=== PATIENT | female | born 1960 | race Caucasian/White ===

== ENCOUNTER 2020-11-30 08:48 | Day surgery (SDC) | payer BC, SELFPAY ==
[2020-11-27 14:17] VITALS: BMI 21.1
--- NOTE | 2020-11-30 09:42 | MHC.SHP ---
Pre-Procedural Eval Section A The patient is an INPATIENT: No Changes since office visit: Yes Cold of Flu in the past 2 weeks, Yes New Medical Problems, Yes Changes in Medication and Yes Patient answered all questions The History & Physical has been completed within 30 days and I have reviewed it.: No Section B Chief Complaint: diarrhea Allergies: Allergies Allergy/AdvReac Type Severity Reaction Status Date / Time No Known Allergies Allergy Verified 11/27/20 14:13 Plan I have reviewed the history and physical and performed a pertinent physical examination on my patient. No changes have occurred unless specified.
[2020-11-30 10:32] VITALS: BP 127/86; PULSE 78; RESP 14; TEMP 36.6; O2SAT 98; BMI 21.1
--- NOTE | 2020-11-30 10:33 | HO.ANESPROP2 ---
[facility] Past Medical History Medical History Anxiety Breast cancer Diarrhea Lumbago with sciatica Lumbar disc disease Osteoarthritis Osteopenia Tension headache Surgical History Surgical History History of lumbar surgery Hx of bilateral oophorectomy Hx of left mastectomy Social History Social History Advance Directives: No Advance Directives Information Provided: No Advance Directives on File: No Meds Allergies Allergy/AdvReac Type Severity Reaction Status Date / Time No Known Allergies Allergy Verified 11/27/20 14:13 Active Medications: Current Medications Generic Name Dose Route Start Last Admin Trade Name Freq PRN Reason Stop Dose Admin Lactated Ringer's 1,000 mls @ 50 mls/hr 11/29/20 08:30 Lr IV .Q20H [facility] Home Medications Medication Instructions Recorded Confirmed Last Taken Type acetaminophen [Tylenol] 650 mg PO Q6H PRN 11/27/20 11/27/20 Unknown History calcium carbonate [Calcium 600] 600 mg PO DAILY 11/27/20 11/27/20 Unknown History cholecalciferol (vitamin D3) 10 mcg PO DAILY 11/27/20 11/27/20 Unknown History [Vitamin D3] ibuprofen [Motrin] 200 mg PO Q6H PRN 11/27/20 11/27/20 Unknown History multivitamin 1 tab PO DAILY 11/27/20 11/27/20 Unknown History Exam Exam Date and Time: November 30, 2020 1033 Height,Weight and Vital Signs: Height 5 ft Weight 48.988 kg Airway Mallampati Class: I TM Dist: >3cm Neck ROM: Full Partial: Upper Heart: RRR Lungs: CTA Assessment and Plan Assessment Anesthesia Assessment: Anesthesia Plan Discussed and Chart Reviewed Final Anesthetic Review NPO: Yes ASA Class: II Final Preanesthetic Review: Meds/Allgs Chart Reviewed, Consent Obtained/Reviewed and Anes Risks/Benef Reviewed Patient Risk: Low Procedure Risk: Low Anesthetic Plan Anesthetic Plan: MAC: Disposition: Standard PACU
[2020-11-30] MEDS: Lactated Ringers 1,000 ML 50 ML IV (10:36)
[2020-11-30 11:51] VITALS: BP 99/49; PULSE 71; RESP 18; TEMP 36.1; O2SAT 100
--- NOTE | 2020-11-30 11:53 | PM.OP ---
Brief Operative Note Date of Service: 11/30/20 Pre-op diagnosis: diarrhea Post-op diagnosis: same (normal) Surgeon: Magdy Lara Estimated blood loss (mL): 2 Pathology: other (sigmoid bx's) Condition: stable Disposition: PACU
[2020-11-30 12:06] VITALS: BP 111/68; PULSE 74; RESP 17; O2SAT 98
[2020-11-30 12:21] VITALS: BP 118/65; PULSE 62; RESP 17; O2SAT 98
[2020-11-30] MEDS: Artificial Tears 15 ML DROPS 1 DROP EYE-LEFT (13:12)
--- NOTE | 2020-11-30 13:26 | OP_ITS ---
SURGEON: Magdy Lara MD INDICATIONS: Diarrhea. PREOPERATIVE DIAGNOSIS: POSTOPERATIVE DIAGNOSIS: PROCEDURE PERFORMED: Colonoscopy to the terminal ileum with biopsy. ESTIMATED BLOOD LOSS: COMPLICATIONS: ANESTHESIA: ASSISTANTS: SPECIMENS: MEDICATIONS: Monitored anesthesia care. DESCRIPTION OF PROCEDURE: History and physical performed. The risks and benefits of the procedure were explained to the patient. Informed consent was obtained. The patient was placed in the left lateral decubitus position. A digital rectal exam was performed and was found to be normal. The Olympus pediatric video colonoscope was introduced into the rectum and advanced to the cecum without difficulty. The cecum was identified by transillumination, palpation, and identification of ileocecal valve. Examination was performed and the scope was removed. She tolerated the procedure well and was taken to recovery area in stable condition. FINDINGS: The terminal ileum was normal. The visualized colonic mucosa was within normal limits without evidence of masses or ulcers. No polyps were identified. There was some liquid stool left, which was washed and suctioned as best possible. Retroflexed examination showed small internal hemorrhoids. Random sigmoid biopsies were obtained because of the patient's history of diarrhea. IMPRESSION: Normal colonoscopy. RECOMMENDATIONS: 1. Follow up the biopsy results. 2. Average risk patient should undergo screening colonoscopy every 10 years. MD THEA Veliz/RACHELL / [id number]
== END 2020-11-30 13:28 | disposition home or self-care (01) ==
PROVIDERS: PCP Internal Medicine; Visit Provider Internal Medicine Gastroenterology
PROC: 0DJD8ZZ Inspection of Lower Intestinal Tract, Via Natural or Artificial Opening Endoscopic (ICD-10-PCS; CPT 45378; principal; 2020-11-30 09:50)
DX: R19.7 Diarrhea, unspecified (principal); K64.8 Other hemorrhoids; Z85.3 Personal history of malignant neoplasm of breast; M85.80 Other specified disorders of bone density and structure, unspecified site; Z90.722 Acquired absence of ovaries, bilateral; Z79.899 Other long term (current) drug therapy
CPT/HCPCS: 45380; 88305

== ENCOUNTER 2021-04-30 10:09 | Outpatient (REF) | payer BC, SELFPAY ==
[2021-04-30 10:12] LABS: MANUAL DIFF FLAG NO
[2021-04-30 10:55] LABS: Basophils Percent Auto 0.7 % (0-2); Eosinophils Absolute Auto 0.1 X10*3/uL (0.0-0.4); Eosinophils Percent Auto 1.1 % (0-4); Hematocrit 39.7 % (37-47); Hemoglobin 12.5 g/dl (12.0-16.0); Imm Gran Abs Auto 0.03 X10*3/uL (0.00-0.03); Imm Gran Pct Auto 0.5 % (0.0-0.4); Lymphocytes Percent Auto 36.3 % (20-40); Mean Corpuscular HGB Conc 31.5 g/dl (31.0-35.0); Mean Corpuscular Hemoglobin 28.2 pg (27.0-33.0); Mean Corpuscular Volume 89.4 fL (80-98); Mean Platelet Volume 10.1 fL (9.4-12.3); Monocytes Absolute Auto 0.5 X10*3/uL (0.1-1.2); Monocytes Percent Auto 8.5 % (2-11); Neutrophils Absolute Auto 2.9 X10*3/uL (2.0-8.3); Neutrophils Percent Auto 52.9 % (45-73); Platelet Count 280 X10*3/uL (160-400); Red Blood Count 4.44 X10*6/uL (4.20-5.50); Red Cell Distribution Width 14.2 % (11.0-16.0); White Blood Count 5.5 X10*3/uL (4.8-10.8)
[2021-04-30 11:18] LABS: Appearance Urine CLEAR; Color Urine YELLOW; Glucose Urine UA NEG (NEG); Leukocyte Esterase Urine NEG (NEG); Nitrite Urine NEG (NEG); PH 7.5 (5.0-8.0); Urine Blood NEG (NEG); Urine Ketones NEG (NEG); Urine Protein NEG (NEG-TRACE)
[2021-04-30 11:37] LABS: Alanine Aminotransferase 20 U/L (0-31); Albumin Level 4.2 g/dL (3.5-5.0); Alkaline Phosphatase 77 U/L (39-117); Anion Gap 14 (12-20); Aspartate Amino Transferase 20 U/L (5-31); Bilirubin Total 0.2 mg/dL (0.0-1.0); Blood Urea Nitrogen 16 mg/dL (9-16); Calcium 9.3 mg/dL (8.4-10.2); Carbon Dioxide 29 mmol/L (22-29); Chloride 104 mmol/L (96-108); Cholesterol 209 mg/dL; Estimated Glomerular Filt Rate > 60; Glucose Fasting 96 mg/dL (60-99); HDL Cholesterol 55 mg/dL; LDL Cholesterol Calculated 135 mg/dl; Potassium 4.1 mmol/L (3.3-5.1); Sodium 143 mmol/L (135-145); Total Protein 6.6 g/dL (6.5-8.0); Triglycerides 99 mg/dL
[2021-04-30 12:02] LABS: Vitamin D 25-OH Total 35.7 ng/mL (>30)
== END 2021-04-30 10:10 | disposition home or self-care (01) ==
LOC: HO.LNP 10:09
PROVIDERS: Visit Provider Internal Medicine
DX: Z00.00 Encounter for general adult medical examination without abnormal findings (principal); R79.9 Abnormal finding of blood chemistry, unspecified; E55.9 Vitamin D deficiency, unspecified
CPT/HCPCS: 80053; 80061; 81003; 82306; 85025

== ENCOUNTER 2022-05-09 12:04 | Outpatient (REF) | payer BC, SELFPAY ==
[2022-05-09 12:07] LABS: MANUAL DIFF FLAG NO
[2022-05-09 12:24] LABS: Basophils Percent Auto 0.5 % (0-2); Eosinophils Percent Auto 0.9 % (0-4); Hematocrit 41.3 % (37.0-47.0); Imm Gran Abs Auto 0.03 X10*3/uL (0.00-0.03); Imm Gran Pct Auto 0.5 % (0.0-0.4); Lymphocytes Absolute Auto 1.9 X10*3/uL (1.2-4.9); Lymphocytes Percent Auto 33.2 % (20-40); Mean Corpuscular HGB Conc 31.5 g/dl (31.0-35.0); Monocytes Percent Auto 7.9 % (2-11); Neutrophils Absolute Auto 3.3 x10*3/uL (2.0-8.3); Platelet Count 341 X10*3/uL (160-400); Red Blood Count 4.64 X10*6/uL (4.20-5.50); Red Cell Distribution Width 14.3 % (11.0-16.0); White Blood Count 5.9 X10*3/uL (4.8-10.8)
[2022-05-09 12:25] LABS: Eosinophils Absolute Auto 0.1 X10*3/uL (0.0-0.4); Monocytes Absolute Auto 0.5 X10*3/uL (0.1-1.2)
[2022-05-09 12:37] LABS: Appearance Urine Clear; Color Urine Yellow; Glucose Urine UA Negative (Negative); Leukocyte Esterase Urine Trace (Negative); Nitrite Urine Negative (Negative); Specific Gravity - Urine 1.025 (1.005-1.025); UMIC TRIGGER UA YES; Urine Blood Negative (Negative); Urine Ketones Negative (Negative); Urine Protein Negative (Neg-Trace)
[2022-05-09 12:40] LABS: Bacteria Urine None Seen (None Seen); Hyaline Casts Urine 0-2 /LPF (0-2); RBC Urine 0-2 /HPF (0-2); Squamous Epithelial Cell Urine 0-2 /HPF (0-2); WBC Urine 0-5 /HPF (0-5)
[2022-05-09 12:47] LABS: Alanine Aminotransferase 22 U/L (0-31); Albumin Level 4.3 g/dL (3.5-5.0); Alkaline Phosphatase 76 U/L (39-117); Anion Gap 13 (12-20); Aspartate Amino Transferase 23 U/L (5-31); Bilirubin Total 0.2 mg/dL (0.0-1.0); Blood Urea Nitrogen 21 mg/dL (9-16); Calcium 9.2 mg/dL (8.4-10.2); Carbon Dioxide 28 mmol/L (22-29); Chloride 103 mmol/L (96-108); Cholesterol 216 mg/dL; Estimated Glomerular Filt Rate > 60; Glucose Fasting 97 mg/dL (60-99); HDL Cholesterol 52 mg/dL; LDL Cholesterol Calculated 146 mg/dl; Potassium 4.3 mmol/L (3.3-5.1); Sodium 140 mmol/L (135-145); Total Protein 6.7 g/dL (6.5-8.0); Triglycerides 91 mg/dL
[2022-05-09 12:54] LABS: Vitamin D 25-OH Total 24.6 ng/mL (>30)
== END 2022-05-09 12:05 | disposition home or self-care (01) ==
LOC: HO.LNP 12:04
PROVIDERS: Visit Provider Internal Medicine
DX: Z00.00 Encounter for general adult medical examination without abnormal findings (principal); E55.9 Vitamin D deficiency, unspecified
CPT/HCPCS: 80053; 80061; 81001; 82306; 85025

== ENCOUNTER 2023-06-05 12:19 | Outpatient (REF) | payer BC, SELFPAY ==
[2023-06-05 12:23] LABS: MANUAL DIFF FLAG NO
[2023-06-05 12:49] LABS: Basophils Absolute Auto 0.1 X10*3/uL (0.0-0.2); Basophils Percent Auto 0.9 % (0-2); Eosinophils Absolute Auto 0.1 X10*3/uL (0.0-0.4); Eosinophils Percent Auto 0.9 % (0-4); Hematocrit 39.1 % (37.0-47.0); Hemoglobin 12.5 g/dl (12.0-16.0); Imm Gran Abs Auto 0.02 X10*3/uL (0.00-0.03); Imm Gran Pct Auto 0.4 % (0.0-0.4); Lymphocytes Percent Auto 34.9 % (20-40); Mean Corpuscular Hemoglobin 28.2 pg (27.0-33.0); Mean Corpuscular Volume 88.3 fL (80.0-98.0); Mean Platelet Volume 10.1 fL (9.4-12.3); Monocytes Absolute Auto 0.5 X10*3/uL (0.1-1.2); Monocytes Percent Auto 9.1 % (2-11); Neutrophils Percent Auto 53.8 % (45-73); Platelet Count 315 X10*3/uL (160-400); Red Blood Count 4.43 X10*6/uL (4.20-5.50); Red Cell Distribution Width 14.3 % (11.0-16.0); White Blood Count 5.6 X10*3/uL (4.8-10.8)
[2023-06-05 12:53] LABS: Appearance Urine Clear; Color Urine Yellow; Glucose Urine UA Negative (Negative); Leukocyte Esterase Urine Negative (Negative); Nitrite Urine Negative (Negative); Urine Blood Negative (Negative); Urine Ketones Negative (Negative); Urine Protein Negative (Neg-Trace)
[2023-06-05 12:55] LABS: Bacteria Urine None Seen (None Seen); Hyaline Casts Urine 0-2 /LPF (0-2); RBC Urine 0-2 /HPF (0-2); Squamous Epithelial Cell Urine 0-2 /HPF (0-2); WBC Urine 0-5 /HPF (0-5)
[2023-06-05 14:55] LABS: Alanine Aminotransferase 15 U/L (0-31); Albumin Level 4.1 g/dL (3.5-5.0); Alkaline Phosphatase 75 U/L (39-117); Anion Gap 11 (12-20); Aspartate Amino Transferase 21 U/L (5-31); Bilirubin Total 0.3 mg/dL (0.0-1.0); Blood Urea Nitrogen 21 mg/dL (9-16); Calcium 9.2 mg/dL (8.4-10.2); Carbon Dioxide 27 mmol/L (22-29); Chloride 105 mmol/L (96-108); Cholesterol 210 mg/dL (<200); Estimated Glomerular Filt Rate > 60; Glucose Fasting 95 mg/dL (60-99); HDL Cholesterol 54 mg/dL (>40); LDL Cholesterol Calculated 144 mg/dL (<100); Potassium 4.2 mmol/L (3.3-5.1); Sodium 139 mmol/L (135-145); Total Protein 6.7 g/dL (6.5-8.0); Triglycerides 62 mg/dL (<150)
[2023-06-05 14:59] LABS: Vitamin D 25-OH Total 118.9 ng/mL (>30)
== END 2023-06-05 12:20 | disposition home or self-care (01) ==
LOC: HO.LNP 12:19
PROVIDERS: Visit Provider Internal Medicine
DX: Z00.00 Encounter for general adult medical examination without abnormal findings (principal); E55.9 Vitamin D deficiency, unspecified
CPT/HCPCS: 80053; 80061; 81001; 82306; 85025

== ENCOUNTER 2024-06-10 11:04 | Outpatient (REF) | payer BC, SELFPAY ==
[2024-06-10 11:08] LABS: MANUAL DIFF FLAG NO
[2024-06-10 12:02] LABS: Appearance Urine Clear; Color Urine Yellow; Glucose Urine UA Negative (Negative); Leukocyte Esterase Urine Negative (Negative); Nitrite Urine Negative (Negative); PH 5.5 (5.0-9.0); Specific Gravity - Urine 1.025 (1.005-1.025); Urine Blood Negative (Negative); Urine Ketones Negative (Negative); Urine Protein Negative (Neg-Trace)
[2024-06-10 12:03] LABS: Basophils Percent Auto 0.6 % (0-2); Eosinophils Absolute Auto 0.1 X10*3/uL (0.0-0.4); Eosinophils Percent Auto 1.1 % (0-4); Hematocrit 40.5 % (37.0-47.0); Imm Gran Abs Auto 0.04 X10*3/uL (0.00-0.03); Imm Gran Pct Auto 0.6 % (0.0-0.4); Lymphocytes Absolute Auto 1.9 X10*3/uL (1.2-4.9); Lymphocytes Percent Auto 29.7 % (20-40); Mean Corpuscular HGB Conc 32.1 g/dl (31.0-35.0); Mean Corpuscular Hemoglobin 28.3 pg (27.0-33.0); Mean Corpuscular Volume 88.2 fL (80.0-98.0); Mean Platelet Volume 10.1 fL (9.4-12.3); Monocytes Absolute Auto 0.5 X10*3/uL (0.1-1.2); Monocytes Percent Auto 8.5 % (2-11); Neutrophils Absolute Auto 3.8 x10*3/uL (2.0-8.3); Neutrophils Percent Auto 59.5 % (45-73); Platelet Count 315 X10*3/uL (160-400); Red Blood Count 4.59 X10*6/uL (4.20-5.50); Red Cell Distribution Width 14.4 % (11.0-16.0); White Blood Count 6.4 X10*3/uL (4.8-10.8)
[2024-06-10 12:08] LABS: Bacteria Urine None Seen (None Seen); RBC Urine 0-2 /HPF (0-2); Squamous Epithelial Cell Urine 0-2 /HPF (0-2); WBC Urine 0-5 /HPF (0-5)
[2024-06-10 12:49] LABS: Vitamin D 25-OH Total 71.2 ng/mL (>30)
[2024-06-10 12:57] LABS: Anion Gap 10 (12-20)
[2024-06-10 13:02] LABS: Alanine Aminotransferase 27 U/L (0-31); Albumin Level 4.1 g/dL (3.5-5.0); Alkaline Phosphatase 74 U/L (39-117); Aspartate Amino Transferase 30 U/L (5-31); Bilirubin Total 0.3 mg/dL (0.0-1.0); Blood Urea Nitrogen 17 mg/dL (9-16); Calcium 9.6 mg/dL (8.4-10.2); Carbon Dioxide 29 mmol/L (22-29); Chloride 105 mmol/L (96-108); Cholesterol 210 mg/dL (<200); Estimated Glomerular Filt Rate > 60; Glucose Fasting 96 mg/dL (60-99); HDL Cholesterol 56 mg/dL (>40); LDL Cholesterol Calculated 142 mg/dL (<100); Potassium 4.2 mmol/L (3.3-5.1); Sodium 140 mmol/L (135-145); Total Protein 6.7 g/dL (6.5-8.0); Triglycerides 64 mg/dL (<150)
== END 2024-06-10 11:05 | disposition home or self-care (01) ==
LOC: HO.LNP 11:04
PROVIDERS: Visit Provider Internal Medicine
DX: Z00.00 Encounter for general adult medical examination without abnormal findings (principal); E55.9 Vitamin D deficiency, unspecified
CPT/HCPCS: 80053; 80061; 81001; 82306; 85025

== ENCOUNTER → 2025-02-22 15:10 | Outpatient (BNVA) | payer OTHER, SELFPAY | PROVIDERS: PCP Internal Medicine; Visit Provider Physician Assistant | DX: H44.133 Sympathetic uveitis, bilateral (principal); M79.18 Myalgia, other site; R19.7 Diarrhea, unspecified | CPT/HCPCS: 80048; 83735; 84075; 85025; 99204 ==

== ENCOUNTER 2025-02-28 09:47 | Outpatient (REF) | payer OTHER, SELFPAY ==
--- OUTSIDE RECORDS SUMMARY | 2025-02-28 10:33 | XMS_ITS | Patient Health Record ---
Author Organization Mike Villalta MD Address [address] [place], [place] [phone] Care Team Providers Care Physician Scribe Name Role Phone Mike Villalta Primary Care Provider Allergies No Known Allergies Results Component Value Reference Range Notes Complete Blood Count Auto Di ff Reviewed date:06/10/2024 12:44:39 PM Interpretation: Performing Lab:[facility], [address] [place] [phone] Notes/Report: White Blood Count 6.4 4.8-10.8 X10*3/uL [...] NRBC Abs Auto 0.000 0.0-0.012 X10*3/uL Comprehensive Imperial. Panel Fa st Reviewed date:06/10/2024 05:14:20 PM Interpretation: Performing Lab:[facility], [address] [place] [phone] Notes/Report: Sodium 140 135-145 mmol/L Potassium 4.2 3.3-5.1 mmol/L Chloride 105 96-108 mmol/L Carbon Dioxide 29 22-29 mmol/L Anion Gap 10 12-20 Blood Urea Nitrogen 17 9-16 mg/dL Creatinine 0.66 0.5-1.4 mg/dL Estimated Glomerular Filt Rate > 60 NOTE: For -Samo[place] individuals, multiply the result by 1.210. Chronic [...] Panel Reviewed date:06/10/2024 05:17:26 PM Interpretation: Performing Lab:[facility], [address] [place] [phone] Notes/Report: Triglycerides 64 <150 mg/dL Desirable Triglyceride: [...] Total Reviewed date:06/10/2024 02:33:31 PM Interpretation: Performing Lab:[address] [phone] Notes/Report: Vitamin D 25-OH Total 71.2 >30 [...] t Reviewed date:06/10/2024 12:44:56 PM Interpretation: Performing Lab:[facility], [address] [place] [phone] Notes/Report: [id number] 0800 Urine, Clean Catch Color Urine Yellow Appearance Urine Clear PH 5.5 5.0-9.0 Glucose Urine UA Negative Negative mg/dL Urine Blood Negative Negative Specific Enterprise - Urine 1.025 1.005-1.025 Urine Protein Negative Neg-Trace mg/dL Urine Ketones Negative Negative mg/dL Nitrite Urine Negative Negative Leukocyte Esterase Urine Negative Negative RBC Urine 0-2 0-2 /HPF WBC Urine 0-5 0-5 /HPF Squamous Epithelial Cell Urine 0-2 0-2 /HPF Bacteria Urine None Seen None Seen Hyaline Casts Urine 3-5 0-2 /LPF MAMMOGRAM DIGITAL BILATERAL SCREEN Reviewed date:06/28/2024 12:46:50 PM Interpretation:Negative Performing Lab: Notes/Report: Negative Reason For Referral Reason hyperkalemia Diagnosis 1 Hyperkalemia (E87.5) Referral Organization Mike Villalta MD Referring Provider First Name Mike Referring Provider Last Name Ambar Referring Provider Speciality Internal M edicine Referred Provider Erwin Lambert Referred Provider Specialty Nephrology Referral Priority Routine Medications Medication SIG (Take, Route, Frequency, Duration) [...] every day for 30 day(s) 12/03/2020 Not-Taking Immunizations Vaccine Route Administration Date Status Comme nts Fluarix Quadrivalent Unknown 06/28/2018 Administered Covid Vaccine Unknown 12/01/2020 Administered Moderna SARS-COV-2 Moderna Unknown 12/29/2020 Administered SARS-COV-2 Moderna Unknown 10/11/2021 Administered [facility] TDaP Unknown 06/28/2018 Refused Fluarix Quadrivalent Unknown 04/12/2019 Refused Shingrix Unknown 04/26/2019 Refused TDaP Unknown 04/26/2019 Refused Social History Tobacco Use: Social History Observation [...] ast year? No Points 0 Interpretation Negative Problems Problem Type SNOMED Code ICD Code Onset Dates Problem Status W/U Status Risk Notes Problem 81689273 Vitamin D deficiency (E55.9) Active confirmed Problem 60575343 Anxiety (F41.9) Active confirmed Problem 2215673 Primary insomnia (F51.01) Active confirmed Problem 26200361 Primary osteoarthritis, right hand (M19.041) Active confirmed Problem 828469778 Lumbago with sciatica, unspecified side (M54.40) Active confirmed Problem 649784376 Lumbar disc disease (M51.9) Active confirmed Problem 116917179 History of breast cancer (Z85.3) Active confirmed Problem 628107432 Tension headache (G44.209) Active confirmed Problem 46297948 Sciatica of right side (M54.31) Active confirmed Problem 744173053 Osteopenia determined by x-ray (M85.80) Active confirmed Vital Signs Blood pressure diastolic 64 mm Hg 02/28/2025 Height 59 in 02/28/2025 Blood pressure systolic 122 mm Hg 02/28/2025 Weight 116 lbs 02/28/2025 BMI 23.43 kg/m2 02/28/2025 Encounters Encounter Location Date Provider Diagnosis Mike Villalta MD [address] [place] [phone] 06/10/2024 Mike Villalta Blood tests for routine general physical examination Z00.00 and Vitamin D deficiency E55.9 Mike Villalta MD [address] [place] [id number] 02/28/2025 Mike Villalta Hyperkalemia E87.5 Mike Villalta MD [address] [place] [address] Drive [address] [place] [phone] 06/17/2024 Mike Villalta Dermatofibroma D23.9 ; Annual physical exam Z00.00 ; History of breast cancer Z85.3 ; Vitamin D deficiency E55.9 and Depression screening Z13.31 Mike Villalta MD [address] [place] [id number] 02/21/2025 Miek Villalta Lethargy R53.83 Mike Villalta MD [address] [place] [address] Drive [address] [place] [id number] 02/21/2025 Mike Villalta MD [address] [place], [place] [phone] 02/16/2025 Mike Villalta Assessments Encounter Date Diagnosis (ICD Code) Assessment Notes Treatment Notes Treatment Clinical Notes Section Notes 06/10/2024 Blood tests for routine general physical examination (ICD-10 - Z00.00) 06/10/2024 Vitamin D deficiency (ICD-10 - E55.9) 02/28/2025 Hyperkalemia (ICD-10 - E87.5) kidney function is normal. most likely cause is the handling of the blood/f the potassium is high will refer her to renal 06/17/2024 Dermatofibroma (ICD-10 - D23.9) referral to [facility]/ PATIENT PREFERS TO GO TO [facility], INFO HAS BEEN GIVEN 06/17/2024 Annual physical exam (ICD-10 - Z00.00) labs reviewed and discussed with patient 02/21/2025 Lethargy (ICD-10 - R53.83) has worked [...] TE from 02-21-25 for W/C billing info 06/17/2024 History of breast cancer (ICD-10 - Z85.3) is going for mammogram. followed by oncology 06/17/2024 Vitamin D deficiency (ICD-10 - E55.9) stable, will contihue current regiment 06/17/2024 Depression screening (ICD-10 - Z13.31) negative screen Plan Of Treatment Pending Test Test Name Order Date Electrocardiogram (EKG) 03/21/2016 NUC WHOLE BODY SCAN BONE 05/01/2020 Potassium 02/28/2025 Future Test Test Name Order Date BONE DENSITY DEXA 10/29/2020 MAMMOGRAM DIGITAL UNILATERAL LAURA RT 10/09 Next Appt Details Provider Name:Mike connolly, 06/15/2025 07:15:00 AM, [address], [address], [place], [place], [phone], Provider Name:Mike connolly, 06/22/2025 02:30:00 PM, [address] [facility], [address], [place], [place], [phone], Insurance Providers Payer Name Payer Address Payer Phone Subscriber Number Group Number Insured Name Patient Relationship to Insured Coverage Start Date Coverage End Date [employer] [address] [place], [place] [phone] [id number] Inocente Steiner Self - patient is the insured [facility] [address] [address] [place] [id number] Inocente Steiner Self - patient is the insured Medical (General) History Medical History History ICD Code 10/10/2013 Colonoscopy; repeat 10 years; colonoscopy 11/30/[address] Lara (CK biopsy repeat 10 y rs) 01/2015 Bone Density (normal) - repeat 2 years Hx of left mastectomy Surgical History Surgery Date(Month/Year) left mastectomy 2000
--- OUTSIDE RECORDS SUMMARY | 2025-02-28 10:33 | XMS_ITS | Patient Health Record ---
Author Organization [facility] Address [address] [place] [address] Care Team Providers Care Manager Behavioral Name Role Phone Mike Villalta MD Primary Care Provider Tamara Lara Jr, Magdy Unavailable [phone] Reason For Referral No Information Medications Medication SIG (Take, Route, Frequency, Duration) Notes Start Date End Date Status Multivitamin Active Tylenol Active Motrin Active Vitamin D 400 units Active MiraLax (colon prep) 8.3 ounce ((238) grams mixed with Gatorade or Crystal Light orally begin at 5:00 p.m. the day before the procedure for 1 day 11/19/2020 Active Calcium 600 MG Orally Activ e Immunizations Vaccine Route Administration Date Status Comme nts Influenza Unknown 11/19/2020 Refused Social History Tobacco Use: Social History Observation Description Date Details (start date - stop date) Never Smoker NA - NA Tobacco Use/Smoking Question Answer Notes Patient is a nonsmoker Alcohol Screen Question Answer Notes Did you have a drink containing alcohol in the p ast year? No Points 0 Interpretation Negative Problems Problem Type SNOMED Code ICD Code Onset Dates Problem Status W/U Status Risk Notes Problem 38193950 Diarrhea, unspecified type (R19.7) Active confirmed Plan Of Treatment Future Test Test Name Order Date COLONOSCOPY 11/19/2020 Insurance Providers Payer Name Payer Address Payer Phone Subscriber Number Group Number Insured Name Patient Relationship to Insured Coverage Start Date Coverage End Date [facility] [address] [place] [address] [id number] CLEMENCIA MANUEL Self - patient is the insured Medical (General) History Medical History History ICD Code osteopenia breast cancer hx of - left side anxiety lumbar disc disease osteoarthritis Tension Headache diarrhea lumbago with Sciatica Surgical History Surgery Date(Month/Year) left mastectomy Lower Lumbar Ovaries removal
--- OUTSIDE RECORDS SUMMARY | 2025-02-28 10:33 | XMS_ITS | Patient Health Record ---
[facility] Address [address] [address] Care Team Providers Care Ob/Gyn Doctor Name Role Phone Mike Villalta MD Primary Care Provider Silvino Palma Unavailable [phone] Reason For Referral No Information Medications Medication SIG (Take, Route, Frequency, Duration) Notes Start Date End Date Status Calcium 600 MG 1 tablet with meals Orally Once a day Active Aspirin 81 MG 1 tablet Orally Once a day Active Multivitamins Active Shoes . . . Medically necess cata to wear comfortable shoes at work; Duration: as needed 05/13/2017 Active Fluticasone Propionate 50 MCG/ACT USE 1 SPRAY IN EACH NOSTRIL ONCE A DAY Nasal; Duration: 60 Not-Taking Vitamin D Active Social History Tobacco Use: Social History Observation Description Date Details (start date - stop date) Never Smoker NA - NA Tobacco Use/Smoking Question Answer Notes Are you a: nonsmoker Additional Findings: Tobacco Non-User Current no n-smoker Alcohol Screen Question Answer Notes Did you have a drink containing alcohol in the p ast year? No Points 0 Interpretation Negative Tobacco use other than smoking: Question Answer Notes Are you an other tobacco user? No Plan Of Treatment Pending Test Test Name Order Date - Ganglion Cyst Injection/Aspiratio n 05/13/2017 Insurance Providers Payer Name Payer Address Payer Phone Subscriber Number Group Number Insured Name Patient Relationship to Insured Coverage Start Date Coverage End Date [facility] [address] [place] [address] [phone] [id number] Inocente Steiner Self - patient is the insured Medical (General) History Medical History History ICD Code Anemia Cancer Transfusions Surgical History Surgery Date(Month/Year) cancer surgery-left breast 2001
[2025-02-28 10:42] LABS: Potassium 4.1 mmol/L (3.3-5.1)
== END 2025-02-28 09:48 | disposition home or self-care (01) ==
LOC: HO.LNP 09:47
PROVIDERS: Visit Provider Internal Medicine
DX: E87.5 Hyperkalemia (principal)
CPT/HCPCS: 84132

== ENCOUNTER 2025-03-22 09:53 | Outpatient (REF) | payer OTHER, SELFPAY ==
[2025-03-22 13:48] LABS: Appearance Urine Clear; Glucose Urine UA Negative (Negative); PH 6.5 (5.0-9.0); Specific Gravity - Urine 1.010 (1.005-1.025); UMIC TRIGGER UA YES
[2025-03-22 17:57] LABS: Alanine Aminotransferase 23 U/L (0-31); Albumin Level 4.5 g/dL (3.5-5.0); Alkaline Phosphatase 79 U/L (39-117); Anion Gap 11 (12-20); Aspartate Amino Transferase 30 U/L (5-31); Blood Urea Nitrogen 19 mg/dL (9-16); Calcium 9.0 mg/dL (8.4-10.2); Carbon Dioxide 29 mmol/L (22-29); Chloride 104 mmol/L (96-108); Estimated Glomerular Filt Rate > 60; Potassium 4.3 mmol/L (3.3-5.1); Sodium 140 mmol/L (135-145); Total Protein 7.0 g/dL (6.5-8.0); Uric Acid 2.8 mg/dL (2.4-5.7)
== END 2025-03-22 09:54 | disposition home or self-care (01) ==
LOC: HO.HKASLDS 09:53
PROVIDERS: PCP Internal Medicine; Referring Provider Internal Medicine; Visit Provider Internal Medicine Hypertension Specialist
DX: E87.5 Hyperkalemia (principal)
CPT/HCPCS: 36415; 80053; 81001; 82570; 84133; 84550; 99202

== ENCOUNTER 2025-03-22 09:53 | Outpatient (AMB) | payer OTHER, SELFPAY ==
[2025-03-22 10:04] VITALS: BP 114/76; PULSE 73; O2SAT 99; BMI 23.0
--- NOTE | 2025-03-22 10:04 | HO.NEPHOV_ITS ---
Vital Signs 03/22/25 10:04 Height 5 ft Weight 118 lb BMI 23.0 BP 114/76 Blood Pressure Location Lt brachial Position Sitting Pulse 73 Pulse Source Pulse Oximeter Pulse Oximetry (%) 99 Oxygen Delivery Method Room Air Intake Visit Reasons: ENP: Hyperkalemia-# Not in Service Neurologist Required: No Accompanied by: Self / Same As Patient Allergies No Known Allergies Allergy (Verified 03/22/25 10:06) Medication List - Last Reconciled 03/22/25 by Erwin Lambert MD acetaminophen (Tylenol) 650 mg PO Q6H PRN cholecalciferol (vitamin D3) (Vitamin D3) 10 mcg PO DAILY HPI Comments Details: The patient is a 64-year-old female presenting with a h/o hyperkalemia and potential fluoride exposure. She has been working with [employer] for nearly ten years, which was recently identified as a potential source of fluoride exposure. The exposure was discovered when the company changed procedures, and her potassium levels were found to be elevated during a work-related health check. Repeat Potassium was normal The patient reports a history of breast cancer diagnosed in 2000, for which she underwent surgery and completed treatment successfully. She also had back surgery in 2019. She experiences persistent fatigue and nausea, which she attributes to stress and her work environment. She also reported a severe case of diarrhea in the past, which has since resolved. [facility] Medical History Anxiety Breast cancer Diarrhea Lumbago with sciatica Lumbar disc disease Osteoarthritis Osteopenia Tension headache Surgical History Hx of bilateral oophorectomy History of lumbar surgery Hx of left mastectomy Review of Systems Const Denies anorexia, Denies fever(s) and Denies weakness Eyes Denies blurry vision Card Denies no additional complaints and Denies dyspnea Resp Reports no additional complaints and Denies dyspnea GI Denies melena, Denies diarrhea (Had diarrhea in the past and resolved.) and Reports nausea Denies hematuria Musc Denies tingling Skin/Breast Denies rash Neuro Denies focal weakness, Denies tingling, Denies tremor(s) and Denies weakness Physical Exam Vital Signs: Last Vital Signs Pulse 73 03/22/25 10:04 BP 114/76 03/22/25 10:04 Pulse Ox 99 03/22/25 10:04 Oxygen Delivery Method Room Air 03/22/25 10:04 BMI result Body Mass Index 23.0 Results Reviewed Nephrology Results: Potassium, (3.3-5.1) 4.1 mmol/L Δ 02/28/25 Urine Protein, (Neg-Trace) Negative mg/dL 06/10/24 Assessment & Plan Assessment & Plan (1) Hyperkalemia: Code(s): E87.5 - Hyperkalemia Category: Medical Plan 64 yr old healthy woman with an episode of Hyperkalemia Renal potassium was normal. Renal function has been normal. Work up ordered as below No changes in medications Further work up will be based on the outcome of the baseline work up Answered all her questions and reassured . Orders: Orders Comprehensive Met. Panel Today E87.5 - Hyperkalemia Uric Acid Today E87.5 - Hyperkalemia UA and rflx microscopic Today E87.5 - Hyperkalemia Potassium Urine Random Today E87.5 - Hyperkalemia Sodium Urine Random 2 Weeks E87.5 - Hyperkalemia Creatinine Urine Today E87.5 - Hyperkalemia Coding Level of Care Code New Pt Level 4 (73315) Diagnoses Hyperkalemia E87.5
--- OUTSIDE RECORDS SUMMARY | 2025-03-22 10:30 | XMS_ITS | Patient Health Record ---
Author Organization [facility] Address [address] [place] [address] Care Team Providers Care Imagery Analyst Name Role Phone Mike Villalta MD Primary Care Provider Tamara Lara Jr, Magdy Unavailable [phone] Reason For Referral No Information Medications Medication [...] Problem Status W/U Status Risk Notes Problem [id number] Diarrhea, unspecified type (R19.7) Active confirmed Plan Of Treatment Future Test Test Name Order Date COLONOSCOPY 11/19/2020 Insurance Providers Payer Name Payer Address Payer Phone Subscriber Number Group Number Insured Name Patient Relationship to Insured Coverage Start Date Coverage End Date [facility] [address] [place] [address] [id number] CLEMENCIA MANUEL Self - patient is the insured Medical (General) History Medical History History ICD Code osteopenia breast cancer hx of - left side anxiety lumbar disc disease osteoarthritis Tension Headache diarrhea lumbago with Sciatica Surgical History Surgery Date(Month/Year) left mastectomy Lower Lumbar Ovaries removal
--- OUTSIDE RECORDS SUMMARY | 2025-03-22 10:30 | XMS_ITS | Patient Health Record ---
Author Organization Mike Villalta MD Address [address] [place], [place] [id number] Care Team Providers Care Corn Crop Supervisor Name Role Phone Mike Villalta Primary Care Provider Allergies No Known Allergies Results Component Value Reference Range Notes Complete Blood Count Auto Di ff Reviewed date:06/10/2024 12:44:39 PM Interpretation: Performing Lab:[facility], [address] [place] [phone] Notes/Report: White Blood Count 6.4 4.8-10.8 X10*3/uL [...] NRBC Abs Auto 0.000 0.0-0.012 X10*3/uL Comprehensive [place]. Panel Fa st Reviewed date:06/10/2024 05:14:20 PM Interpretation: Performing Lab:[facility], [address] [place] [phone] Notes/Report: Sodium 140 135-145 mmol/L Potassium 4.2 3.3-5.1 mmol/L Chloride 105 96-108 mmol/L Carbon Dioxide 29 22-29 mmol/L Anion Gap 10 12-20 Blood Urea Nitrogen 17 9-16 mg/dL Creatinine 0.66 0.5-1.4 mg/dL Estimated Glomerular Filt Rate > 60 NOTE: For -Swiss individuals, multiply the result by 1.210. Chronic [...] Panel Reviewed date:06/10/2024 05:17:26 PM Interpretation: Performing Lab:[facility], [address] [place] [phone] Notes/Report: Triglycerides 64 <150 mg/dL Desirable Triglyceride: [...] Total Reviewed date:06/10/2024 02:33:31 PM Interpretation: Performing Lab:[address] [phone] Notes/Report: Vitamin D 25-OH Total 71.2 >30 [...] t Reviewed date:06/10/2024 12:44:56 PM Interpretation: Performing Lab:[facility], [address] [place] [phone] Notes/Report: [id number] Urine, Clean Catch Color Urine Yellow Appearance Urine Clear PH 5.5 5.0-9.0 Glucose Urine UA Negative Negative mg/dL Urine Blood Negative Negative Specific [place] - Urine 1.025 1.005-1.025 Urine Protein Negative Neg-Trace mg/dL Urine Ketones Negative Negative mg/dL Nitrite Urine Negative Negative Leukocyte Esterase Urine Negative Negative RBC Urine 0-2 0-2 /HPF WBC Urine 0-5 0-5 /HPF Squamous Epithelial Cell Urine 0-2 0-2 /HPF Bacteria Urine None Seen None Seen Hyaline Casts Urine 3-5 0-2 /LPF Potassium Reviewed date:02/28/2025 12:31:59 PM Interpretation: Performing Lab:[facility], [address] [place] [phone] Notes/Report: Potassium 4.1 3.3-5.1 mmol/L MAMMOGRAM DIGITAL BILATERAL SCREEN Reviewed date:06/28/2024 12:46:50 PM Interpretation:Negative Performing Lab: Notes/Report: Negative Reason For Referral Reason hyperkalemia Diagnosis 1 Hyperkalemia (E87.5) Referral Organization Mike Villalta MD Referring Provider First Name Mike Referring Provider Last Name Ambar Referring Provider Speciality Internal M edicine Referred Provider Erwin Lambert Referred Provider Specialty Nephrology General Notes Radha Becerril 0 03/13/2025 10:17:04 AM >info faxedJone Annette 03/16/2025 11:47:28 AM >was told patient is aware of the appt Referral Priority Routine Referral Appointment Date 03/22/2025 Medications Medication SIG (Take, Route, Frequency, Duration) [...] Problem Status W/U Status Risk Notes Problem 77772928 Vitamin D deficiency (E55.9) Active confirmed Problem 64462360 Anxiety (F41.9) Active confirmed Problem 6376631 Primary insomnia (F51.01) Active confirmed Problem 21228197 Primary osteoarthritis, right hand (M19.041) Active confirmed Problem 802322368 Lumbago with sciatica, unspecified side (M54.40) Active confirmed Problem 330817363 Lumbar disc disease (M51.9) Active confirmed Problem 076383862 History of breast cancer (Z85.3) Active confirmed Problem 630164515 Tension headache (G44.209) Active confirmed Problem 84845741 Sciatica of right side (M54.31) Active confirmed Problem 345901258 Osteopenia determined by x-ray (M85.80) Active confirmed Vital Signs Blood pressure diastolic 64 mm Hg 02/28/2025 Height 59 in 02/28/2025 Blood pressure systolic 122 mm Hg 02/28/2025 Weight 116 lbs 02/28/2025 BMI 23.43 kg/m2 02/28/2025 Encounters Encounter Location Date Provider Diagnosis Mike Villalta MD [address] [place] [id number] 06/10/2024 Mike Villalta Blood tests for routine general physical examination Z00.00 and Vitamin D deficiency E55.9 Mike Villalta MD [address] [place], [place] [id number] 06/17/2024 Mike Villalta Dermatofibroma D23.9 ; Annual physical exam Z00.00 ; History of breast cancer Z85.3 ; Vitamin D deficiency E55.9 and Depression screening Z13.31 Mike Villalta MD [address] [place] [id number] 02/21/2025 Mike Villalta Lethargy R53.83 Mike Villalta MD [address] [place] [id number] 02/28/2025 Mike Villalta Hyperkalemia E87.5 Mike Villalta MD [address] [place] [id number] 02/21/2025 Mike Villalta MD [address] [place] [id number] 02/16/2025 Mike Villalta Assessments Encounter Date Diagnosis (ICD Code) Assessment Notes Treatment Notes Treatment Clinical Notes Section Notes 06/10/2024 Blood tests for routine general physical examination (ICD-10 - Z00.00) 06/10/2024 Vitamin D deficiency (ICD-10 - E55.9) 06/17/2024 Dermatofibroma (ICD-10 - D23.9) referral to [place] [facility]/ PATIENT PREFERS TO GO TO [facility], INFO HAS BEEN GIVEN 06/17/2024 Annual physical exam (ICD-10 - Z00.00) labs reviewed and discussed with patient 02/21/2025 Lethargy (ICD-10 - R53.83) 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 Her employer needs to do this. Called her HR dept they will be handling this. See TE from 02-21-25 for W/C billing info 02/28/2025 Hyperkalemia (ICD-10 - E87.5) kidney function is normal. most likely cause is the handling of the blood/f the potassium is high will refer her to renal 06/17/2024 History of breast cancer (ICD-10 - Z85.3) is going for mammogram. followed by oncology 06/17/2024 Vitamin D deficiency (ICD-10 - E55.9) stable, will contihue current regiment 06/17/2024 Depression screening (ICD-10 - Z13.31) negative screen Plan Of Treatment Pending Test Test Name Order Date Electrocardiogram (EKG) 03/21/2016 NUC WHOLE BODY SCAN BONE 05/01/2020 Future Test Test Name Order Date BONE DENSITY DEXA 10/29/2020 MAMMOGRAM DIGITAL UNILATERAL LAURA RT 10/09 Next Appt Details Provider Name:Mike Jackson ier, 06/15/2025 07:15:00 AM, [address] [facility], [address], [place], [place], [phone], Provider Name:Mike Jackson ier, 06/22/2025 02:30:00 PM, [address] [facility], [address], [place], [place], [id number], Insurance Providers Payer Name Payer Address Payer Phone Subscriber Number Group Number Insured Name Patient Relationship to Insured Coverage Start Date Coverage End Date [employer] [address] [place], [place] [phone] [id number] Inocente Steiner Self - patient is the insured [facility] [address] [address] [place] [id number] Inocente Steiner Self - patient is the insured Medical (General) History Medical History History ICD Code 10/10/2013 Colonoscopy; repeat 10 years; colonoscopy 11/30/[address] Lara (CK biopsy repeat 10 y rs) 01/2015 Bone Density (normal) - repeat 2 years Hx of left mastectomy Surgical History Surgery Date(Month/Year) left mastectomy 2000
--- OUTSIDE RECORDS SUMMARY | 2025-03-22 10:30 | XMS_ITS | Patient Health Record ---
[facility] Address [address] [place] [address] Care Team Providers Care Animal Control Licensing Worker Name Role Phone Mike Villalta MD Primary Care Provider Silvino Palma Unavailable [phone] Reason For Referral No Information Medications Medication [...] Insured Coverage Start Date Coverage End Date [facility] [address] [place] [id number] Inocente Steiner Self - patient is the insured Medical (General) History Medical History History ICD Code Anemia Cancer Transfusions Surgical History Surgery Date(Month/Year) cancer surgery-left breast 2001
== END 2025-03-22 10:22 | disposition home or self-care (01) ==
LOC: HO.HKAS 09:54
PROVIDERS: PCP Internal Medicine; Referring Provider Internal Medicine; Visit Provider Internal Medicine Hypertension Specialist
DX: E87.5 Hyperkalemia (principal)
CPT/HCPCS: 99204

== ENCOUNTER 2025-04-19 10:05 | Outpatient (AMB) | payer OTHER, SELFPAY ==
--- OUTSIDE RECORDS SUMMARY | 2024-06-17 10:30 | XMS_ITS ---
Author Organization Mike Villalta MD Address [address] [place], [place] [phone] Care Team Providers Care Set Up Mold Technician Name Role Phone Mike Villalta Primary Care Provider Allergies No Known Allergies REASON FOR VISIT [...] Date Provider Diagnosis Mike Villalta MD [address] [place] [phone] 06/17/2024 Mike Villalta Dermatofibroma D23.9 ; Annual physical exam Z00.00 ; History of breast cancer Z85.3 ; Vitamin D deficiency E55.9 and Depression screening Z13.31 Assessments Encounter Date Diagnosis (ICD Code) Assessment Notes Treatment Notes Treatment Clinical Notes Section Notes 06/17/2024 Dermatofibroma (ICD-10 - D23.9) [place] [facility]/ [place]IENT PREFERS TO GO TO [facility], INFO HAS BEEN GIVEN 06/17/2024 Annual [...] [place] [facility]IENT PREFERS TO GO TO [facility], INFO HAS BEEN GIVEN Annual physical exam labs reviewed and d iscussed with patient History of breast cancer is going for ma mmogram. followed by oncology Vitamin D deficiency stable, will contih ue current regiment Depression screening negative screen Next Appt Details Provider Name:Mike Jackson ietrace, 06/15/2025 07:15:00 AM, [address] [place] [address], Suite [facility], [place], [place], [phone], Provider Name:Mike connolly, 06/22/2025 02:30:00 PM, [address] [place] [address], Suite [facility], [place], [place], [phone], Progress Notes * Inocente STEINER MDOB:1960 (63 yo F)Acc No.[id number]:06/17/2024 Progress Notes Patient: Inocente Flores Provider: Crescencio Villalta MD :1960 A ge:63 Y S ex:Female Date:06/17/2024 Address:[address] [place] [address] [id number] Subjective: * Chief Complaints: * A NNUAL [...] 2 cats. no Travel outside of the [place]. * Medications: T akingVitamin D (Cholecalciferol) [...] mg/dL Urine Blood Negative Negative - Specific [place] - Urine 1.025 1.005-1.025 - Urine Protein [...] Auto 0.000 0.0-0.012 - X10*3/uL L ab:Comprehensive [place]. Panel Fast (Order Date - 06/10/2024) (Collection [...] to auscultation bilaterally. BREASTS: d one by vice president diversity. ABDOMEN: s oft, nontender, nondistended, bowel sounds present, normal, no organomegaly , no masses palpable. RECTAL EXAM: d one by vice president diversity. FEMALE GENITOURINARY: d one by vice president diversity. EXTREMITIES: n o clubbing, cyanosis, or edema. [...] Treatment: 2. D ermatofibroma Notes: referral to [place] [facility]/ PATIENT PREFERS TO GO TO [facility], INFO HAS BEEN GIVEN 3. H istory of breast cancer Notes: is going for mammogram. followed by oncology 4. V itamin D deficiency Notes: stable, will contihue current regiment 5. D epression screening Notes: negative screen * Procedure Codes: * * Sign off status: Completed true * Provider: Crescencio Villalta MD Date: 08/17/2023 Generated for Star fonseca/Logan/Sheridanitting on: 0 04/19/2025 12:15 PM EDT History and Physical Notes * HPI (History [...] Total Score: 0 Interpretation and Intervention Depression Cinthia hurtado Findings: Negative Follow-Up for Depression: : [...] cyanosi s, or edema BREASTS: done by vice president diversity RECTAL EXAM: done by vice president diversity FEMALE GENITOURINARY: done by vice president diversity ORAL CAVITY: mucosa moist
--- OUTSIDE RECORDS SUMMARY | 2025-02-16 07:46 | XMS_ITS ---
Author Organization Mike Villalta MD Address [address] [place] [phone] Care Team Providers Care Hospital Coordinator Name Role Phone Mike Villalta Primary Care Provider REASON FOR VISIT referral Encounters Encounter Location Date Provider Diagnosis Mike Villalta MD [address] [facility] [address] [place] [phone] 02/16/2025 Mike Villalta Plan Of Treatment Next Appt Details Provider Name:Mike connolly, 06/15/2025 07:15:00 AM, [address] [place] [address], [address] [place] [address], [phone], Provider Name:Mike connolly, 06/22/2025 02:30:00 PM, [address] [place] [address], [address], [phone], Progress Notes * Inocente STEINER MDOB:1960 (64 yo F)Acc No.[id number]:02/16/2025 Patient: Inocente ODONNELL :1960 A ge:64 Y S ex:Female Address:[address] [place] [phone] * true * Date: Generated for Star fonseca/Logan/Sheridanitting on: 0 04/19/2025 12:15 PM EDT
--- OUTSIDE RECORDS SUMMARY | 2025-02-21 09:30 | XMS_ITS ---
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 will refer to the work connection where they do much more industrial work/ not able to refer patient to [facility] Work Connection. Her employer needs to do this. Called her HR dept they will be handling this. 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 will refer to the work connection where they do much more industrial work/ not able to refer patient to [facility] Work Connection. Her employer needs to do this. Called her HR dept they will be handling this. See TE from 02-21-25 for W/C billing info Next Appt Details Provider Name:Mike Jacskon cathleen, 06/15/2025 07:15:00 AM, [address] [place] [address], Suite [facility], [place], [place], [phone], Provider Name:Mike Jackson cathleen, 06/22/2025 02:30:00 PM, [address] [place] [address], Suite [facility], [place], [place], [phone], Progress Notes * Inocente STEINER MDOB:1960 (64 yo F)Acc No.[id number]:02/21/2025 Progress Notes Patient: Inocente ODONNELL Provider: Crescencio Villalta MD :1960 A ge:64 Y S ex:Female Date:02/21/2025 Address:[address] [place] [address] [phone] Subjective: * Chief Complaints: * W /C [...] MD Date: 0 02/21/2025 Generated for Star fonseca/Logan/Sheridanitting on: 0 04/19/2025 [...]
--- OUTSIDE RECORDS SUMMARY | 2025-02-21 09:32 | XMS_ITS ---
Author Organization Mike Villalta MD Address [address] [place] [phone] Care Team Providers Care Furnace Feeder Name Role Phone Mike Villalta Primary Care Provider REASON FOR VISIT Workman's Comp Info Encounters Encounter Location Date Provider Diagnosis Mike Villalta MD [address] [facility] [address] [place] [phone] 02/21/2025 Mike Villalta Plan Of Treatment Next Appt Details Provider Name:Mike connolly, 06/15/2025 07:15:00 AM, [address] [place] [address], [address] [place] [address], [phone], Provider Name:Mike connolly, 06/22/2025 02:30:00 PM, [address] [place] [address], [address], [phone], Progress Notes * Inocente STEINER MDOB:1960 (64 yo F)Acc No.[id number]:02/21/2025 Patient: Inocente ODONNELL :1960 A ge:64 Y S ex:Female Address:[address] [place] [phone] * * Date:
--- OUTSIDE RECORDS SUMMARY | 2025-02-28 04:30 | XMS_ITS ---
Author Organization Mike Villalta MD Address [address] [place], [place] [phone] Care Team Providers Care Desk Officer Name Role Phone Mike Villalta Primary Care Provider Allergies No Known Allergies Results Component Value Reference Range Notes Potassium Reviewed date:02/28/2025 12:31:59 PM Interpretation: Performing Lab:[facility], [address] [place] [phone] Notes/Report: Potassium 4.1 3.3-5.1 mmol/L Reason For [...] Location Date Provider Diagnosis Mike Villalta MD [address] [place] [address] [place] [phone] 02/28/2025 Mike Villalta Hyperkalemia E87.5 Assessments Encounter [...] Erwin jenkins Next Appt Details Provider Name:Mike connolly, 06/15/2025 07:15:00 AM, [address] [place] [address], Suite [facility], [place], [place], [phone], Provider Name:Mike connolly, 06/22/2025 02:30:00 PM, [address] [place] [address], Suite [facility], [place], [place], [phone], Progress Notes * Inocente STEINER MDOB:1960 (64 yo F)Acc No.[id number]:02/28/2025 Progress Notes Patient: Inocente ODONNELL Provider: Crescencio Villalta MD :1960 A ge:64 Y S ex:Female Date:02/28/2025 Address:[address] [place] [address] [id number] Subjective: * Chief Complaints: * W /C [...] MD Date: 0 02/28/2025 Generated for Star fonseca/Logan/Sheirdanitting on: 0 04/19/2025 12:15 PM EDT History [...]
[2025-04-19 10:07] VITALS: BP 116/62; PULSE 71; O2SAT 99; BMI 22.8
--- NOTE | 2025-04-19 10:07 | HO.NEPHOV ---
Vital Signs 04/19/25 10:07 Height 5 ft Weight 117 lb BMI 22.8 BP 116/62 Blood Pressure Location Rt brachial Position Sitting Pulse 71 Pulse Source Pulse Oximeter Pulse Oximetry (%) 99 Oxygen Delivery Method Room Air Intake Visit Reasons: 4wks w lab-Voicemail Full Math Specialist Required: No Accompanied by: Self / Same As Patient Allergies No Known Allergies Allergy (Verified 04/19/25 10:10) Medication List - Last Reconciled 04/19/25 by Erwin Lambert MD acetaminophen (Tylenol) 650 mg PO Q6H PRN cholecalciferol (vitamin D3) (Vitamin D3) 10 mcg PO DAILY HPI Comments Details: The patient is a 64-year-old female presenting with a h/o hyperkalemia and potential fluoride exposure. She has been working with [employer] for nearly ten years, which was recently identified as a potential source of fluoride exposure. The exposure was discovered when the company changed procedures, and her potassium levels were found to be elevated during a work-related health check. Repeat Potassium was normal The patient reports a history of breast cancer diagnosed in 2000, for which she underwent surgery and completed treatment successfully. She also had back surgery in 2019. She experiences persistent fatigue and nausea, which she attributes to stress and her work environment. She also reported a severe case of diarrhea in the past, which has since resolved. 04/19/25 Still has some fatigue No nausea PFSH Medical History Anxiety Breast cancer Diarrhea Lumbago with sciatica Lumbar disc disease Osteoarthritis Osteopenia Tension headache Surgical History Hx of bilateral oophorectomy History of lumbar surgery Hx of left mastectomy Physical Exam Vital Signs: Last Vital Signs Pulse 71 04/19/25 10:07 BP 116/62 04/19/25 10:07 Pulse Ox 99 04/19/25 10:07 Oxygen Delivery Method Room Air 04/19/25 10:07 BMI result Body Mass Index 22.8 Comfortable Neck supple no JVD. Lungs entry equal no rales. Heart S1-S2 heard no gallop or rub. Abdomen soft nontender. Neuro alert awake oriented. No asterixis. Extremities no edema. Results Reviewed Nephrology Results: Sodium, (135-145) 140 mmol/L 03/22/25 Potassium, (3.3-5.1) 4.3 mmol/L 03/22/25 Chloride, (96-108) 104 mmol/L 03/22/25 Carbon Dioxide, (22-29) 29 mmol/L 03/22/25 BUN, (9-16) 19 mg/dL H 03/22/25 Creatinine, (0.5-1.4) 0.64 mg/dL 03/22/25 Calcium, (8.4-10.2) 9.0 mg/dL Δ 03/22/25 Urine Protein, (Neg-Trace) Negative mg/dL 03/22/25 Urine Creatinine 20.87 mg/dL 03/22/25 Assessment & Plan Assessment & Plan (1) Hyperkalemia: Code(s): E87.5 - Hyperkalemia Category: Medical Plan 64 yr old healthy woman with an episode of Hyperkalemia Renal potassium was normal. Renal function has been normal. Work up thus far has been unremarkable other than a BUN of 19 and AG of 11. Note Serum Alb of 4.5 No changes in medications No Further work up is needed from a renal stand point at this time . Coding Level of Care Code Est Pt Level 3 (90965) Diagnoses Hyperkalemia E87.5
--- OUTSIDE RECORDS SUMMARY | 2025-04-19 12:15 | XMS_ITS | Patient Health Record ---
Author Organization Mike Villalta MD Address [address] [place], [place] [id number] Care Team Providers Care Seo Professional Name Role Phone Mike Villalta Primary Care Provider Allergies No Known Allergies Results Component Value Reference Range Notes Complete Blood Count Auto Di ff Reviewed date:06/10/2024 12:44:39 PM Interpretation: Performing Lab:[facility], [address] [place] [phone] Notes/Report: White Blood Count 6.4 4.8-10.8 X10*3/uL [...] NRBC Abs Auto 0.000 0.0-0.012 X10*3/uL Comprehensive T[place]. Panel Fa st Reviewed date:06/10/2024 05:14:20 PM Interpretation: Performing Lab:[facility], [address] [place] [phone] Notes/Report: Sodium 140 135-145 mmol/L Potassium 4.2 3.3-5.1 mmol/L Chloride 105 96-108 mmol/L Carbon Dioxide 29 22-29 mmol/L Anion Gap 10 12-20 Blood Urea Nitrogen 17 9-16 mg/dL Creatinine 0.66 0.5-1.4 mg/dL Estimated Glomerular Filt Rate > 60 NOTE: For -[place] individuals, multiply the result by 1.210. Chronic [...] Panel Reviewed date:06/10/2024 05:17:26 PM Interpretation: Performing Lab:[facility], [address] [place] [phone] Notes/Report: Triglycerides 64 <150 mg/dL Desirable Triglyceride: [...] Total Reviewed date:06/10/2024 02:33:31 PM Interpretation: Performing Lab:[address] [phone] Notes/Report: Vitamin D 25-OH Total 71.2 >30 [...] t Reviewed date:06/10/2024 12:44:56 PM Interpretation: Performing Lab:[facility], [address] [place] [phone] Notes/Report: [id number] 0800 Urine, Clean Catch Color Urine Yellow Appearance Urine Clear PH 5.5 5.0-9.0 Glucose Urine UA Negative Negative mg/dL Urine Blood Negative Negative Specific [place] - Urine 1.025 1.005-1.025 Urine Protein Negative Neg-Trace mg/dL Urine Ketones Negative Negative mg/dL Nitrite Urine Negative Negative Leukocyte Esterase Urine Negative Negative RBC Urine 0-2 0-2 /HPF WBC Urine 0-5 0-5 /HPF Squamous Epithelial Cell Urine 0-2 0-2 /HPF Bacteria Urine None Seen None Seen Hyaline Casts Urine 3-5 0-2 /LPF Potassium Reviewed date:02/28/2025 12:31:59 PM Interpretation: Performing Lab:[address] [phone] Notes/Report: Potassium 4.1 3.3-5.1 mmol/L MAMMOGRAM DIGITAL BILATERAL SCREEN Reviewed date:06/28/2024 12:46:50 PM Interpretation:Negative Performing Lab: Notes/Report: Negative Urinalysis and Microscopic Reviewed date:03/22/2025 02:10:15 PM Interpretation: Performing Lab:[facility], [address] [place] [phone] Notes/Report: Color Urine Yellow Appearance Urine Clear PH 6.5 5.0-9.0 Glucose Urine UA Negative Negative mg/dL Urine Blood Negative Negative Specific [place] - Urine 1.010 1.005-1.025 Urine Protein Negative Neg-Trace mg/dL Urine Ketones Negative Negative mg/dL Nitrite Urine Negative Negative Leukocyte Esterase Urine Trace Negative RBC Urine 0-2 0-2 /HPF WBC Urine 0-5 0-5 /HPF Squamous Epithelial Cell Urine 0-2 0-2 /HPF Bacteria Urine None Seen None Seen Hyaline Casts Urine 0-2 0-2 /LPF Comprehensive Met. Panel Reviewed date:03/23/2025 12:33:36 PM Interpretation: Performing Lab:[address] [phone] Notes/Report: Sodium 140 135-145 mmol/L Potassium 4.3 3.3-5.1 mmol/L Chloride 104 96-108 mmol/L Carbon Dioxide 29 22-29 mmol/L Anion Gap 11 12-20 Blood Urea Nitrogen 19 9-16 mg/dL Creatinine 0.64 0.5-1.4 mg/dL Estimated Glomerular Filt Rate > 60 Chronic Kidney Disease: Estimated GFR < 60 mL/min/1.73m2 Severe Kidney Disease: Estimated GFR < 15 mL/min/1.73m2 Glucose Random 99 60-115 mg/dL Calcium 9.0 8.4-10.2 mg/dL Bilirubin Total 0.1 0.0-1.0 mg/dL Aspartate Amino Transferase 30 5-31 U/L Alanine Aminotransferase 23 0-31 U/L Total Protein 7.0 6.5-8.0 g/dL Albumin Level 4.5 3.5-5.0 g/dL Alkaline Phosphatase 79 39-117 U/L Uric Acid Reviewed date:03/23/2025 08:45:53 AM Interpretation: Performing Lab:[address] [phone] Notes/Report: Uric Acid 2.8 2.4-5.7 mg/dL Creatinine Urine Reviewed date:03/23/2025 08:43:28 AM Interpretation: Performing Lab:[address] [phone] Notes/Report: Creatinine Urine 20.87 Potassium Urine Random Reviewed date:03/23/2025 08:47:09 AM Interpretation: Performing Lab:[address] [phone] Notes/Report: Potassium Urine Random 39.7 Reason For Referral Reason hyperkalemia Diagnosis 1 [...] Problem Status W/U Status Risk Notes Problem 35876615 Vitamin D deficiency (E55.9) Active confirmed Problem 25263867 Anxiety (F41.9) Active confirmed Problem 5243771 Primary insomnia (F51.01) Active confirmed Problem 87895894 Primary osteoarthritis, right hand (M19.041) Active confirmed Problem 495013254 Lumbago with sciatica, unspecified side (M54.40) Active confirmed Problem 190797252 Lumbar disc disease (M51.9) Active confirmed Problem 827791059 History of breast cancer (Z85.3) Active confirmed Problem 727291027 Tension headache (G44.209) Active confirmed Problem 48356742 Sciatica of right side (M54.31) Active confirmed Problem 879951498 Osteopenia determined by x-ray (M85.80) Active confirmed Vital Signs Blood pressure diastolic 64 mm Hg 02/28/2025 Height 59 in 02/28/2025 Blood pressure systolic 122 mm Hg 02/28/2025 Weight 116 lbs 02/28/2025 BMI 23.43 kg/m2 02/28/2025 Encounters Encounter Location Date Provider Diagnosis Mike Villalta MD [address] [place] [id number] 06/10/2024 Mike Villalta Blood tests for routine general physical examination Z00.00 and Vitamin D deficiency E55.9 Mike Villalta MD [address] [place] [id number] 06/17/2024 Mike Villalta Dermatofibroma D23.9 ; Annual physical exam Z00.00 ; History of breast cancer Z85.3 ; Vitamin D deficiency E55.9 and Depression screening Z13.31 Mike Villalta MD [address] [place] [id number] 02/21/2025 Mike Villalta Lethargy R53.83 Mike Villalta MD [address] [place] [id number] 02/28/2025 Mike Villalta Hyperkalemia E87.5 Mike Villalta MD [address] [place] [id number] 02/21/2025 Mike Villalta MD [address] [place] [id number] 02/16/2025 iMke Villalta Assessments Encounter Date Diagnosis (ICD Code) Assessment Notes Treatment Notes Treatment Clinical Notes Section Notes 06/10/2024 Blood tests for routine general physical examination (ICD-10 - Z00.00) 06/10/2024 Vitamin D deficiency (ICD-10 - E55.9) 06/17/2024 Dermatofibroma (ICD-10 - D23.9) referral to [facility]/ PATIENT PREFERS TO GO TO [facility], INFO HAS BEEN GIVEN 06/17/2024 Annual physical exam (ICD-10 - Z00.00) labs reviewed and discussed with patient 02/21/2025 Lethargy (ICD-10 - R53.83) 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 Her employer needs to do [...] Provider Name:Mike Jackson ier, 06/15/2025 07:15:00 AM, [address] [place] [address], [address], [phone], Provider Name:Mike Jackson ier, 06/22/2025 02:30:00 PM, [address] [place] [address], [place] [address], [place], [place], [phone], Insurance Providers Payer Name Payer Address Payer Phone Subscriber Number Group Number Insured Name Patient Relationship to Insured Coverage Start Date Coverage End Date [employer] [address] [place], [place] [phone] [id number] Inocente Steiner Self - patient is the insured [employer] [address] [address] [place] [address] [id number] Inocente Steiner Self - patient is the insured Medical (General) History Medical History History ICD Code 10/10/2013 Colonoscopy; repeat 10 years; colonoscopy 11/30/[address] Lara (CK biopsy repeat 10 y rs) 01/2015 Bone Density (normal) - repeat 2 years Hx of left mastectomy Surgical History Surgery Date(Month/Year) left mastectomy 2000
--- OUTSIDE RECORDS SUMMARY | 2025-04-19 12:16 | XMS_ITS | Patient Health Record ---
[facility] Address [address] [place] [address] Care Team Providers Care Order Entry Clerk Name Role Phone Mike Villalta MD Primary Care Provider Silvino Palma Unavailable [phone] Reason For Referral No Information Medications Medication [...] Insured Coverage Start Date Coverage End Date [facility] [address] [place] [id number] Inocente Steiner Self - patient is the insured Medical (General) History Medical History History ICD Code Anemia Cancer Transfusions Surgical History Surgery Date(Month/Year) cancer surgery-left breast 2001
--- OUTSIDE RECORDS SUMMARY | 2025-04-19 12:16 | XMS_ITS | Patient Health Record ---
Author Organization [facility] Address [address] [place] [phone] Care Team Providers Care Printing Equipment Mechanic Apprentice Name Role Phone Mike Villalta MD Primary Care Provider Tamara Lara Jr, Magdy Unavailable Reason For Referral No Information Medications Medication [...] Problem Status W/U Status Risk Notes Problem 82187295 Diarrhea, unspecified type (R19.7) Active confirmed Plan Of Treatment Future Test Test Name Order Date COLONOSCOPY 11/19/2020 Insurance Providers Payer Name Payer Address Payer Phone Subscriber Number Group Number Insured Name Patient Relationship to Insured Coverage Start Date Coverage End Date [facility] [address] [place] [address] [id number] CLEMENCIA MANUEL Self - patient is the insured Medical (General) History Medical History History ICD Code osteopenia breast cancer hx of - left side anxiety lumbar disc disease osteoarthritis Tension Headache diarrhea lumbago with Sciatica Surgical History Surgery Date(Month/Year) left mastectomy Lower Lumbar Ovaries removal
== END 2025-04-19 10:24 | disposition home or self-care (01) ==
LOC: HO.HKAS 10:05
PROVIDERS: PCP Internal Medicine; Visit Provider Internal Medicine Hypertension Specialist
DX: E87.5 Hyperkalemia (principal)
CPT/HCPCS: 99213

== ENCOUNTER → 2025-04-19 10:05 | Outpatient (BNVA) | payer OTHER, SELFPAY | PROVIDERS: PCP Internal Medicine; Visit Provider Internal Medicine Hypertension Specialist | DX: E87.5 Hyperkalemia (principal) | CPT/HCPCS: 99212 ==

== ENCOUNTER 2025-06-15 11:15 | Outpatient (REF) | payer BC, SELFPAY ==
--- OUTSIDE RECORDS SUMMARY | 2024-06-10 03:00 | XMS_ITS ---
Author Organization Mike Villalta MD Address [address] [place], [place] [id number] Care Team Providers Care Developmental Education Instructor Name Role Phone Mike Villalta Primary Care Provider [phone] Results Component Value Reference Range Notes Complete Blood Count Auto Di ff Reviewed date:06/10/2024 12:44:39 PM Interpretation: Performing Lab:[facility], [address] [place] [phone] Notes/Report: White Blood Count 6.4 4.8-10.8 X10*3/uL Red Blood Count 4.59 4.20-5.50 X10*6/uL Hemoglobin 13.0 12.0-16.0 g/dl Hematocrit 40.5 37.0-47.0 % Mean Corpuscular Volume 88.2 80.0-98.0 fL Mean Corpuscular Hemoglobin 28.3 27.0-33.0 pg Mean Corpuscular HGB Conc 32.1 31.0-35.0 g/dl Red Cell Distribution Width 14.4 11.0-16.0 % Platelet Count 315 160-400 X10*3/uL Mean Platelet Volume 10.1 9.4-12.3 fL Neutrophils Percent Auto 59.5 45-73 % Imm Gran Pct Auto 0.6 0.0-0.4 % Lymphocytes Percent Auto 29.7 20-40 % Monocytes Percent Auto 8.5 2-11 % Eosinophils Percent Auto 1.1 0-4 % Basophils Percent Auto 0.6 0-2 % NRBC Pct Auto 0.0 0.0-0.2 /100WBC Neutrophils Absolute Auto 3.8 2.0-8.3 x10*3/u L Imm Gran Abs Auto 0.04 0.00-0.03 X10*3/uL Lymphocytes Absolute Auto 1.9 1.2-4.9 X10*3/u L Monocytes Absolute Auto 0.5 0.1-1.2 X10*3/uL Eosinophils Absolute Auto 0.1 0.0-0.4 X10*3/u L Basophils Absolute Auto 0.0 0.0-0.2 X10*3/uL NRBC Abs Auto 0.000 0.0-0.012 X10*3/uL Comprehensive [place]. Panel Fa st Reviewed date:06/10/2024 05:14:20 PM Interpretation: Performing Lab:[facility], [address] [place] [phone] Notes/Report: Sodium 140 135-145 mmol/L Potassium 4.2 3.3-5.1 mmol/L Chloride 105 96-108 mmol/L Carbon Dioxide 29 22-29 mmol/L Anion Gap 10 12-20 Blood Urea Nitrogen 17 9-16 mg/dL Creatinine 0.66 0.5-1.4 mg/dL Estimated Glomerular Filt Rate > 60 NOTE: For -[place] individuals, multiply the result by 1.210. Chronic Kidney Disease: Estimated GFR < 60 mL/min/1.73m2 Severe Kidney Disease: Estimated GFR < 15 mL/min/1.73m2 Glucose Fasting 96 60-99 mg/dL Calcium 9.6 8.4-10.2 mg/dL Bilirubin Total 0.3 0.0-1.0 mg/dL Aspartate Amino Transferase 30 5-31 U/L Alanine Aminotransferase 27 0-31 U/L Total Protein 6.7 6.5-8.0 g/dL Albumin Level 4.1 3.5-5.0 g/dL Alkaline Phosphatase 74 39-117 U/L Lipid Panel Reviewed date:06/10/2024 05:17:26 PM Interpretation: Performing Lab:[address] [phone] Notes/Report: Triglycerides 64 <150 mg/dL Desirable Triglyceride: less than 150 mg/dL Borderline High Triglyceride 150-199 mg/dL High Triglyceride: 200-499 mg/dL Very High Triglyceride: greater than or equal to 5OO mg/dL Cholesterol 210 <200 mg/dL Desirable Cholesterol: less than 200 mg/dL Borderline High Cholesterol: 200-239 mg/dL High Cholesterol: greater than 239 mg/dL LDL Cholesterol Calculated 142 <100 mg/dL Desirable LDL: less than 100 mg/dL Near Optimal/Above Optimal LDL: 110-129 mg/dL Borderline High LDL: 130-159 mg/dL High LDL: 160-189 mg/dL Very High LDL: greater than or equal to 190 mg/dL HDL Cholesterol 56 >40 mg/dL Desirable HDL: greater than 40 mg/dL Note: This HDL assay may give artificially low results in patients with liver disease. Vitamin D 25-OH Total Reviewed date:06/10/2024 02:33:31 PM Interpretation: Performing Lab:[address] [phone] Notes/Report: Vitamin D 25-OH Total 71.2 >30 ng/mL Health Based Reference Values* < 20 ng/mL Deficient 20-30 ng/mL Insufficient > 30 ng/mL Sufficient *Toby MAGANA. N Engl J Med. 2007;357:266-280 Care must be taken in interpreting Vitamin D results from different laboratories and methodologies. Published data demonstrated that results from patients undergoing hemodialysis may show a negative bias when tested with various automated 25-OH vitamin D assays when compared to LC-MS/MS. When testing samples from patients whose predominant form of Vitamin D is Vitamin D2, such as patients receiving Vitamin D2 supplementation, results that are subtherapeutic should be confirmed with another method such as LC-MS/MS. UA ClnCatch+Micro w/rflx Cul t Reviewed date:06/10/2024 12:44:56 PM Interpretation: Performing Lab:[facility], [address] [place] [phone] Notes/Report: [id number] Urine, Clean Catch Color Urine Yellow Appearance Urine Clear PH 5.5 5.0-9.0 Glucose Urine UA Negative Negative mg/dL Urine Blood Negative Negative Specific Ward - Urine 1.025 1.005-1.025 Urine Protein Negative Neg-Trace mg/dL Urine Ketones Negative Negative mg/dL Nitrite Urine Negative Negative Leukocyte Esterase Urine Negative Negative RBC Urine 0-2 0-2 /HPF WBC Urine 0-5 0-5 /HPF Squamous Epithelial Cell Urine 0-2 0-2 /HPF Bacteria Urine None Seen None Seen Hyaline Casts Urine 3-5 0-2 /LPF REASON FOR VISIT FASTING LABS Encounters Encounter Location Date Provider Diagnosis Mike Villalta MD [address] [place], [place] [id number] 06/10/2024 iMke Villalta Blood tests for routine general physical examination Z00.00 and Vitamin D deficiency E55.9 Assessments Encounter Date Diagnosis (ICD Code) Assessment Notes Treatment Notes Treatment Clinical Notes Section Notes 06/10/2024 Blood tests for routine general physical examination (ICD-10 - Z00.00) 06/10/2024 Vitamin D deficiency (ICD-10 - E55.9) Plan Of Treatment Next Appt Details Provider Name:Mike Jackson ier, 06/22/2025 02:30:00 PM, [address], [address], [place], [place], [id number], Progress Notes * Inocente STEINER MDOB:1960 (64 yo F)Acc No.[id number]:06/10/2024 Progress Note Patient: Moe MACKEYKuldipjose alberto Welsh Provider: Crescencio Villalta MD :1960 A ge:63 Y S ex:Female Date:06/10/2024 Address:[address] [place] [id number] Subjective: * Chief Complaints: * 1 . FASTING LABS. * Medical History: Objective: * Vitals: Assessment: * Assessment: 1. B lood tests for routine general physical examination - Z00.00 (Primary) 2 .?Vitamin D deficiency - E55.9 Plan: * Treatment: 2. V itamin D deficiency L AB: Complete Blood Count Auto Diff (Collection Date & Time - 06/10/2024 08:00 AM) L AB: Comprehensive [place]. Panel Fast (Collection Date & Time - 06/10/2024 08:00 AM) L AB: Lipid Panel (Collection Date & Time - 06/10/2024 08:00 AM) L AB: Vitamin D 25-OH Total (Collection Date & Time - 06/10/2024 08:00 AM) L AB: UA ClnCatch+Micro w/rflx Cult (Collection Date & Time - 06/10/2024 08:00 AM) * Procedure Codes: 3 6415 VENIPUNCT, ROUTINE* * * The named appointment provid er may or may not be the originator of this progress note, and it is not deemed complete until electronically signed by the appointment provider. Sign off status: Pending * Provider: Crescencio Villalta MD Date: 08/10/2023 Generated for Star fonseca/Logan/Tiffanie on: 08/15/2024 01:59 PM EST
--- OUTSIDE RECORDS SUMMARY | 2024-06-17 09:30 | XMS_ITS ---
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 Name Role Phone Mike Villalta Primary Care Provider [phone] Allergies No Known Allergies REASON FOR VISIT ANNUAL EXAM Medications Medication SIG (Take, Route, Frequency, Duration) Notes Start Date End Date Status Ibuprofen 800 MG 1 tablet with food o r milk as needed Orally Three times a day for 30 days 05/24/2019 Not-Taking Vitamin D (Cholecalciferol) 400 UNIT 1 tablet Orally bid Active Hyoscyamine Sulfate ER 0.375 MG 1 tablet Orally every day for 30 day(s) 12/03/2020 Not-Taking Tylenol 8 Hour 650 MG 2 tablets as neede d Orally every 8 hrs Not-Taking Social History Tobacco Use: Social History Observation Description Date Details (start date - stop date) Never Smoker NA - NA Tobacco Use/Smoking Question Answer Notes Patient is a nonsmoker Additional Findings: Tobacco Non-User Cu rrent non-smoker, currently using no form of tobacco Alcohol Screen Question Answer Notes Did you have a drink containing alcohol in the p ast year? No Points 0 Interpretation Negative Vital Signs Blood pressure systolic 112 mm Hg 06/17/20 24 Blood pressure diastolic 60 mm Hg 024 Height 59 in 06/17/2024 Weight 114 lbs 06/17/2024 BMI 23.02 kg/m2 06/17/2024 Encounters Encounter Location Date Provider Diagnosis Mike Villalta MD [address] [place] [phone] 06/17/2024 Mike Villalta Dermatofibroma D23.9 ; Annual physical exam Z00.00 ; History of breast cancer Z85.3 ; Vitamin D deficiency E55.9 and Depression screening Z13.31 Assessments Encounter Date Diagnosis (ICD Code) Assessment Notes Treatment Notes Treatment Clinical Notes Section Notes 06/17/2024 Dermatofibroma (ICD-10 - D23.9) referral to [place] [facility]/ PATIENT PREFERS TO GO TO [facility], INFO HAS BEEN GIVEN 06/17/2024 Annual physical exam (ICD-10 - Z00.00) labs reviewed and discussed with patient 06/17/2024 History of breast cancer (ICD-10 - Z85.3) is going for mammogram. followed by oncology 06/17/2024 Vitamin D deficiency (ICD-10 - E55.9) stable, will contihue current regiment 06/17/2024 Depression screening (ICD-10 - Z13.31) negative screen Plan Of Treatment Treatment Notes Assessment Notes Dermatofibroma referral to [place] [facility]/ PATIENT PREFERS TO GO TO [facility], INFO HAS BEEN GIVEN Annual physical exam labs reviewed and d iscussed with patient History of breast cancer is going for ma mmogram. followed by oncology Vitamin D deficiency stable, will contih ue current regiment Depression screening negative screen Next Appt Details Provider Name:Mike Jackson ier, 06/22/2025 02:30:00 PM, [address], [address], [place], [place], [phone], Progress Notes * Inocente STEINER MDOB:1960 (63 yo F)Acc No.[id number]:06/17/2024 Progress Notes Patient: Inocente Flores Provider: Crescencio Villalta MD :1960 A ge:63 Y S ex:Female Date:06/17/2024 Address:[address] [place] [address] [place], [id number] Subjective: * Chief Complaints: * A NNUAL EXAM * HPI: D epression Screening: PHQ-9 L ittle interest or pleasure in doing things N ot at all, F eeling down, depressed, or hopeless N ot at all, T rouble falling or staying asleep, or sleeping too much N ot at all, F eeling tired or having little energy N ot at all, P oor appetite or overeating N ot at all, F eeling bad about yourself or that you are a failure, or have let yourself or your family down N ot at all, T rouble concentrating on things, such as reading the newspaper or watching television N ot at all, M oving or speaking so slowly that other people could have noticed; or the opposite, being so fidgety or restless that you have been moving around a lot more than usual N ot at all, T houghts that you would be better off or of hurting yourself in some way N ot at all, T otal Score 0 . I nterpretation and Intervention D epression Screening Findings N egative, F ollow-Up for Depression : review of PHQ-9 found negative result, no follow-up needed. patient is a 63 yo female here for annual visit with review of recent labs and follow u of chronic issues, here for yearly evaluation/ lately a lot of foods make her gassy and bloated. also has a small spot on her arm that feels like it is 'talking to her . C ommunication Needs: Communication Needs D oes the patient have a hearing impairment N o, D oes the patient have a vision impairment? Y es, I f yes, what is the vision impairment? G lasses, D oes the patient have a cognition impairment? N o. F all Risk: History H ave you had any falls with injury in the past year? N o, H ave you had two or more falls in the past year? N o. S JACEY Questions: SDOH Questions I n the past year have you been worried about losing housing? N o, I n the past year have you or any family members you live with been unable to get any of the following when it was really needed? Check all that apply: N one. * ROS: G eneral/Constitutional: Patient denies f atigue, headache. C hange in appetite?denies. C hills d enies. F ever d enies. O phthalmologic: Blurred vision d enies. D ischarge d enies. P ain d enies. E NT: Patient denies d ecreased sense of smell, any loss of taste, sore throat. D ecreased hearing d enies. S ore throat d enies. S wollen glands?denies. E ndocrine: Cold intolerance d enies. E xcessive thirst d enies. H eat intolerance d enies. W eight loss d enies. R espiratory: Cough d enies. S hortness of breath at rest d enies. S hortness of breath with exertion d enies. W heezing d enies. C ardiovascular: Chest pain at rest d enies. C hest pain with exertion?denies. I rregular heartbeat d enies. S hortness of breath d enies. ? G astrointestinal: Abdominal pain d enies. C hange in bowel habits d enies. D iarrhea d enies. N ausea d enies. R ectal bleeding d enies. V omiting d enies . G enitourinary: Blood in urine d enies. D ifficulty urinating d enies. F requent urination d enies. U rinary incontinence D enies. M usculoskeletal: Patient denies m uscle aches. P ainful joints d enies. W eakness d enies. P eripheral Vascular: Patient denies r ed and blue toes. S kin: Dry skin d enies. I tching d enies. D enies?Mole(s), changes in moles, new moles or any lesions of concern. D enies P hotosensitivity. R demetria d enies. N eurologic: Dizziness d enies. F ainting d enies. H eadache?denies. * Medical History: * Surgical History: * Hospitalization/Major Diagno stic Procedure: * Family History: F ather: 59 yrs. M other: 52 yrs. 1 son(s) , 4 daughter(s) . . Father-Pneumonia Mother-Stomach cancer 1 brother drowning 1 sister Cancer, Denies mental health/substance abuse family history, No pertinent family medical history 1 brother 24 Drowning 1 sisiter 57 Breast cancer, No pertinent family medical history. * Social History: T obacco Use: T obacco Use/Smoking P atient is a n onsmoker, A dditional Findings: Tobacco Non-User C urrent non-smoker, currently using no form of tobacco. D rugs/Alcohol: A lcohol Screen D id you have a drink containing alcohol in the past year? N o, P oints 0 , I nterpretation N egative. M iscellaneous: n o Caffeine. Children: yes. Community involvements: yes. Exercise: yes, walks 15 minutes a day. Home smoke detector use: yes. Housing: owning. Living with: spouse. Marital status: . Occupation: unemployed. Pets: 2 cats. no Travel outside of the [place]. * Medications: T akingVitamin D (Cholecalciferol) 400 UNIT Tablet Chewable 1 tablet Orally bidTaking Vitamin D (Cholecalciferol) 400 UNIT Tablet Chewable 1 tablet Orally bidNot-Taking/PRNTylenol 8 Hour 650 MG Tablet Extended Release 2 tablets as needed Orally every 8 hrsHyoscyamine Sulfate ER 0.375 MG Tablet Extended Release 1 tablet Orally every dayIbuprofen 800 MG Tablet 1 tablet with food or milk as needed Orally Three times a dayMedication List reviewed and reconciled with the patientNot-Taking/PRN Tylenol 8 Hour 650 MG Tablet Extended Release 2 tablets as needed Orally every 8 hrsNot-Taking/PRN Hyoscyamine Sulfate ER 0.375 MG Tablet Extended Release 1 tablet Orally every dayNot-Taking/PRN Ibuprofen 800 MG Tablet 1 tablet with food or milk as needed Orally Three times a dayMedication List reviewed and reconciled with the patient * Allergies: N .K.D.A.yes[Allergies Verified] Objective: * Vitals: H t: 59, Wt:114, BMI:23.02, BP:112/60. * P ast Orders: L ab:Lipid Panel (Order Date - 06/10/2024) (Collection Date - 06/10/2024) Value Reference Range Triglycerides 64 <150 - mg/dL Cholesterol 210 H <200 - mg/dL LDL Cholesterol Calculated 142 H <100 - mg/dL HDL Cholesterol 56 >40 - mg/dL L ab:Vitamin D 25-OH Total (Order Date - 06/10/2024) (Collection Date - 06/10/2024) Value Reference Range Vitamin D 25-OH Total 71.2 >30 - ng/mL L ab:UA ClnCatch+Micro w/rflx Cult (Order Date - 06/10/2024) (Collection Date - 06/10/2024) Value Reference Range Color Urine Yellow - Appearance Urine Clear - PH 5.5 5.0-9.0 - Glucose Urine UA Negative Negative - mg/dL Urine Blood Negative Negative - Specific [place] - Urine 1.025 1.005-1.025 - Urine Protein Negative Neg-Trace - mg/dL Urine Ketones Negative Negative - mg/dL Nitrite Urine Negative Negative - Leukocyte Esterase Urine Negative Negative - RBC Urine 0-2 0-2 - /HPF WBC Urine 0-5 0-5 - /HPF Squamous Epithelial Cell Urine 0-2 0-2 - /HP F Bacteria Urine None Seen None Seen - Hyaline Casts Urine 3-5 0-2 - /LPF L ab:Complete Blood Count Auto Diff (Order Date - 06/10/2024) (Collection Date - 06/10/2024) Value Reference Range White Blood Count 6.4 4.8-10.8 - X10*3/uL Red Blood Count 4.59 4.20-5.50 - X10*6/uL Hemoglobin 13.0 12.0-16.0 - g/dl Hematocrit 40.5 37.0-47.0 - % Mean Corpuscular Volume 88.2 80.0-98.0 - fL Mean Corpuscular Hemoglobin 28.3 27.0-33.0 - pg Mean Corpuscular HGB Conc 32.1 31.0-35.0 - g/ dl Red Cell Distribution Width 14.4 11.0-16.0 - % Platelet Count 315 160-400 - X10*3/uL Mean Platelet Volume 10.1 9.4-12.3 - fL Neutrophils Percent Auto 59.5 45-73 - % Imm Gran Pct Auto 0.6 H 0.0-0.4 - % Lymphocytes Percent Auto 29.7 20-40 - % Monocytes Percent Auto 8.5 2-11 - % Eosinophils Percent Auto 1.1 0-4 - % Basophils Percent Auto 0.6 0-2 - % NRBC Pct Auto 0.0 0.0-0.2 - /100WBC Neutrophils Absolute Auto 3.8 2.0-8.3 - x10* 3/uL Imm Gran Abs Auto 0.04 H 0.00-0.03 - X10*3/uL Lymphocytes Absolute Auto 1.9 1.2-4.9 - X10* 3/uL Monocytes Absolute Auto 0.5 0.1-1.2 - X10*3/ uL Eosinophils Absolute Auto 0.1 0.0-0.4 - X10* 3/uL Basophils Absolute Auto 0.0 0.0-0.2 - X10*3/ uL NRBC Abs Auto 0.000 0.0-0.012 - X10*3/uL L ab:Comprehensive [place]. Panel Fast (Order Date - 06/10/2024) (Collection Date - 06/10/2024) Value Reference Range Sodium 140 135-145 - mmol/L Bilirubin Total 0.3 0.0-1.0 - mg/dL Aspartate Amino Transferase 30 5-31 - U/L Alanine Aminotransferase 27 0-31 - U/L Total Protein 6.7 6.5-8.0 - g/dL Albumin Level 4.1 3.5-5.0 - g/dL Alkaline Phosphatase 74 39-117 - U/L Potassium 4.2 3.3-5.1 - mmol/L Chloride 105 96-108 - mmol/L Carbon Dioxide 29 22-29 - mmol/L Anion Gap 10 L 12-20 - Blood Urea Nitrogen 17 H 9-16 - mg/dL Creatinine 0.66 0.5-1.4 - mg/dL Estimated Glomerular Filt Rate > 60 - Glucose Fasting 96 60-99 - mg/dL Calcium 9.6 8.4-10.2 - mg/dL * Examination: G eneral Examination: GENERAL APPEARANCE: w ell developed, well nourished, in no acute distress. HEAD: n ormocephalic, atraumatic. EYES: p upils equal, round, reactive to light and accommodation, sclera non-icteric. EARS: n ormal. ORAL CAVITY: m ucosa moist. THROAT: c lear. NECK/THYROID: n jimi supple, full range of motion, no cervical lymphadenopathy, no bruits. SKIN: w arm and dry, no suspicious lesions , abnormal with a lesion consistent with a dermatofibroma. HEART: r egular rate and rhythm, S1, S2 normal, no murmurs.? LUNGS: c lear to auscultation bilaterally. BREASTS: d one by manager acute. ABDOMEN: s oft, nontender, nondistended, bowel sounds present, normal, no organomegaly , no masses palpable. RECTAL EXAM: d one by manager acute. FEMALE GENITOURINARY: d one by manager acute. EXTREMITIES: n o clubbing, cyanosis, or edema. NEUROLOGIC: n onfocal, motor strength normal upper and lower extremities, sensory exam intact. Assessment: * Assessment: 1. A nnual physical exam - Z00.00 (Primary) 2 . D ermatofibroma - D23.9 3 . H istory of breast cancer - Z85.3 4 . V itamin D deficiency - E55.9 5 . D epression screening - Z13.31 Plan: * Treatment: 2. D ermatofibroma Notes: referral to [place] [facility]/ PATIENT PREFERS TO GO TO [facility], INFO HAS BEEN GIVEN 3. H istory of breast cancer Notes: is going for mammogram. followed by oncology 4. V itamin D deficiency Notes: stable, will contihue current regiment 5. D epression screening Notes: negative screen * Procedure Codes: * * Sign off status: Completed true * Provider: Crescencio Villalta MD Date: 08/17/2023 Generated for Star fonseca/Logan/Adrianasmitting on: 08/15/2024 02:00 PM EST History and Physical Notes * HPI (History of Present Illness) Category Sub-Category Detail Notes Category Not es Depression Screening PHQ-9 Little inte rest or pleasure in doing things: Not at all patient is a 63 yo female here for annual visit with review of recent labs and follow u of chronic issues, here for yearly evaluation/ lately a lot of foods make her gassy and bloated. also has a small spot on her arm that feels like it is 'talking to her Feeling down, depressed, or hopeless: No t at all Trouble falling or staying asleep, or sl eeping too much: Not at all Feeling tired or having little energy: N ot at all Poor appetite or overeating: Not at all Feeling bad about yourself o r that you are a failure, or have let yourself or your family down: Not at all Trouble concentrating on thi ngs, such as reading the newspaper or watching television: Not at all Moving or speaking so slowly that other people could have noticed; or the opposite, being so fidgety or restless that you have been moving around a lot more than usual: Not at all Thoughts that you would be b brant off or of hurting yourself in some way: Not at all Total Score: 0 Interpretation and Intervention Depression Cnithia hurtado Findings: Negative Follow-Up for Depression: : review of PH Q-9 found negative result, no follow-up needed SDOH Questions SDOH Questions In the past year have you been worried about losing housing?: No In the past year have you or any family members you live with been unable to get any of the following when it was really needed? Check all that apply:: None Fall Risk History Have you had any falls with injury i n the past year?: No Have you had two or more falls in the st year?: No Communication Needs Communication Needs Does the patient have a hearing impairment: No Does the patient have a vision impairmen t?: Yes If yes, what is the vision impairment?: Glasses Does the patient have a cognition impair ment?: No Examination Category Sub-Category Detail Notes Category Not es General Examination GENERAL APPEARANCE: well dev eloped, well nourished, in no acute distress HEAD: normocephalic, atrau matic EYES: pupils equal, round, reactive to light and accommodation, sclera non-icteric EARS: normal THROAT: clear NECK/THYROID: neck supple, full ra nge of motion, no cervical lymphadenopathy, no bruits HEART: regular rate and rhy thm, S1, S2 normal, no murmurs LUNGS: clear to auscultatio n bilaterally ABDOMEN: soft, nontender, non distended, bowel sounds present, normal, no organomegaly , no masses palpable NEUROLOGIC: nonfocal, motor stre ngth normal upper and lower extremities, sensory exam intact SKIN: warm and dry, no monique picious lesions , abnormal with a lesion consistent with a dermatofibroma EXTREMITIES: no clubbing, cyanosi s, or edema BREASTS: done by manager acute RECTAL EXAM: done by manager acute FEMALE GENITOURINARY: done by manager acute ORAL CAVITY: mucosa moist
--- OUTSIDE RECORDS SUMMARY | 2025-02-16 06:46 | XMS_ITS ---
Author Organization Mike Villalta MD Address [address] [place] [phone] Care Team Providers Care Power Plant Assistant Name Role Phone Mike Villalta Primary Care Provider [phone] REASON FOR VISIT referral Encounters Encounter Location Date Provider Diagnosis Mike Villalta MD [address] [facility] [address] [place] [phone] 02/16/2025 Mike Villalta Plan Of Treatment Next Appt Details Provider Name:Mike Jackson ier, 06/22/2025 02:30:00 PM, [address], Suite [facility], [place], [place], [phone], Progress Notes * Inocente STEINER MDOB:1960 (64 yo F)Acc No.[id number]:02/16/2025 Patient: Inocente ODONNELL :1960 A ge:64 Y S ex:Female Address:[address] [place] [id number] * true * Date: Generated for Star fonseca/Logan/Tiffanie on: 08/15/2024 01:59 PM EST
--- OUTSIDE RECORDS SUMMARY | 2025-02-21 08:30 | XMS_ITS ---
Author Organization Mike Villalta MD Address [address] [place], [place] [phone] Care Team Providers Care Aspnet Developer Name Role Phone Mike Villalta Primary Care Provider Allergies No Known Allergies REASON FOR VISIT W/C chemical exposure has been exposed for years Medications Medication SIG (Take, Route, Frequency, Duration) Notes Start Date End Date Status Hyoscyamine Sulfate ER 0.375 MG 1 tablet Orally every day for 30 day(s) 12/03/2020 Not-Taking Ibuprofen 800 MG 1 tablet with food o r milk as needed Orally Three times a day for 30 days 05/24/2019 Not-Taking Tylenol 8 Hour 650 MG 2 tablets as neede d Orally every 8 hrs Not-Taking Vitamin D (Cholecalciferol) 400 UNIT 1 tablet Orally bid Active Vital Signs Blood pressure systolic 122 mm Hg 02/22/20 25 Blood pressure diastolic 70 mm Hg 025 Height 59 in 02/21/2025 Weight 117 lbs 02/21/2025 BMI 23.63 kg/m2 02/21/2025 weight is up 3 pounds since 06-17-24 Encounters Encounter Location Date Provider Diagnosis Mike Villalta MD [address] [place], [place] [phone] 02/21/2025 Mike Romoargy R53.83 Assessments Encounter Date Diagnosis (ICD Code) Assessment Notes Treatment Notes Treatment Clinical Notes Section Notes 02/21/2025 Lethargy (ICD-10 - R53.83) 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 will refer to the work connection where they do much more industrial work/ not able to refer patient to [facility] Work Connection. Her employer needs to do this. Called her HR dept they will be handling this. See TE from 02-21-25 for W/C billing info Plan Of Treatment Treatment Notes Assessment Notes Victor My has worked with chem icals and is wondering if it is a problem. will refer to the work connection where they do much more industrial work/ not able to refer patient to [facility] Work Connection. Her employer needs to do this. Called her HR dept they will be handling this. See TE from 02-21-25 for W/C billing info Next Appt Details Provider Name:Mike Jackson ier, 06/22/2025 02:30:00 PM, [address], [address], [place], [place], [phone], Progress Notes * Inocente STEINER MDOB:1960 (64 yo F)Acc No.[id number]:02/21/2025 Progress Notes Patient: Inocente ODONNELL Provider: Crescencio Villalta MD :1960 A ge:64 Y S ex:Female Date:02/21/2025 Address:[address] [place], [place] [phone] Subjective: * Chief Complaints: * W /C chemical exposure has been exposed for years * HPI: S ymptom(s): patient is a 64 yo female here with complaint she has been exposed to chemicals for long time at work/. * ROS: G eneral/Constitutional: Denies C hills. D enies F atigue. D enies F ever. D enies H eadache. E NT: Denies S ore throat. R espiratory: Denies C ough. D enies S hortness of breath at rest. D enies S hortness of breath with exertion. G astrointestinal: Denies D iarrhea. D enies N ausea. P sychiatric: Admits A nxiety. A dmits D epressed mood. A dmits D ifficulty sleeping. A dmits S tressors. D enies S uicidal thoughts. ? * Medical History: * Surgical History: * Hospitalization/Major Diagno stic Procedure: * Medications: T akingVitamin D (Cholecalciferol) 400 UNIT Tablet Chewable 1 tablet Orally bid Taking Vitamin D (Cholecalciferol) 400 UNIT Tablet Chewable 1 tablet Orally bid Not-Taking/PRNTylenol 8 Hour 650 MG Tablet Extended Release 2 tablets as needed Orally every 8 hrs Hyoscyamine Sulfate ER 0.375 MG Tablet Extended Release 1 tablet Orally every day Ibuprofen 800 MG Tablet 1 tablet with food or milk as needed Orally Three times a day Not-Taking/PRN Tylenol 8 Hour 650 MG Tablet Extended Release 2 tablets as needed Orally every 8 hrs Not-Taking/PRN Hyoscyamine Sulfate ER 0.375 MG Tablet Extended Release 1 tablet Orally every day Not-Taking/PRN Ibuprofen 800 MG Tablet 1 tablet with food or milk as needed Orally Three times a day * Allergies: N .K.D.A.yes[Allergies Verified] Objective: * Vitals: H t: 59, Wt: 117, BMI:23.63, BP:122/70, Wt-k.07. weight is up 3 pounds since 06-17-24. * Examination: G eneral Examination: GENERAL APPEARANCE: a lert, well hydrated, in no distress.? HEAD: n ormocephalic. HEART: n o murmurs, rubs, gallops, regular rate and rhythm.? LUNGS: c lear to auscultation bilaterally. Assessment: * Assessment: 1. L ethargy - R53.83 (Primary) Plan: * Treatment: * Procedure Codes: * * Sign off status: Completed true * Provider: Crescencio Villalta MD Date: 0 02/21/2025 Generated for Star fonseca/Logan/eTransmitting on: 08/15/2024 02:00 PM EST History and Physical Notes * HPI (History of Present Illness) Category Sub-Category Detail Notes Category Not es Symptom(s) patient is a 64 yo female here with complaint she has been exposed to chemicals for long time at work/ Examination Category Sub-Category Detail Notes Category Not es General Examination GENERAL APPEARANCE: alert, w ell hydrated, in no distress HEAD: normocephalic HEART: no murmurs, rubs, ga llops, regular rate and rhythm LUNGS: clear to auscultatio n bilaterally
--- OUTSIDE RECORDS SUMMARY | 2025-02-21 08:32 | XMS_ITS ---
Author Organization Mike Villalta MD Address [address] [place] [phone] Care Team Providers Care Padder Name Role Phone Mike Villalta Primary Care Provider REASON FOR VISIT Workman's Comp Info Encounters Encounter Location Date Provider Diagnosis Mike Villalta MD [address] [place] [phone] 02/21/2025 Mike Villalta Plan Of Treatment Next Appt Details Provider Name:Mike Jackson ier, 06/22/2025 02:30:00 PM, [address], [address], [place], [place], [phone], Progress Notes * Inocente STEINER MDOB:1960 (64 yo F)Acc No.[id number]:02/21/2025 Patient: Inocente ODONNELL :1960 A ge:64 Y S ex:Female Address:[address] [place] [address] * * Date:
--- OUTSIDE RECORDS SUMMARY | 2025-02-28 03:30 | XMS_ITS ---
Author Organization Mike Villalta MD Address [address] [place], [place] [phone] Care Team Providers Care Vice President Commercial Bank Name Role Phone Mike Villalta Primary Care Provider Allergies No Known Allergies Results Component Value Reference Range Notes Potassium Reviewed date:02/28/2025 12:31:59 PM Interpretation: Performing Lab:[facility], [address] [place] [phone] Notes/Report: Potassium 4.1 3.3-5.1 mmol/L Reason For Referral Reason hyperkalemia Diagnosis 1 Hyperkalemia (E87.5) Referral Organization Mike Villalta MD Referring Provider First Name Mike Referring Provider Last Name Ambar Referring Provider Speciality Internal M edicine Referred Provider Erwin Lambert Referred Provider Specialty Nephrology General Notes Radha Becerril 0 03/13/2025 10:17:04 AM >info faxed, Radha Becerril 03/16/2025 11:47:28 AM >was told patient is aware of the appt Referral Priority Routine Referral Appointment Date 03/22/2025 REASON FOR VISIT W/C visit Work Connection Potassium is high Medications Medication SIG (Take, Route, Frequency, Duration) Notes Start Date End Date Status Tylenol 8 Hour 650 MG 2 tablets as neede d Orally every 8 hrs Not-Taking Vitamin D (Cholecalciferol) 400 UNIT 1 tablet Orally bid Active Ibuprofen 800 MG 1 tablet with food o r milk as needed Orally Three times a day for 30 days 05/24/2019 Not-Taking Hyoscyamine Sulfate ER 0.375 MG 1 tablet Orally every day for 30 day(s) 12/03/2020 Not-Taking Vital Signs Blood pressure systolic 122 mm Hg 02/29/20 25 Blood pressure diastolic 64 mm Hg 025 Height 59 in 02/28/2025 Weight 116 lbs 02/28/2025 BMI 23.43 kg/m2 02/28/2025 Encounters Encounter Location Date Provider Diagnosis Mike Villalta MD [address] [place], [place] [phone] 02/28/2025 Mike Villalta Hyperkalemia E87.5 Assessments Encounter Date Diagnosis (ICD Code) Assessment Notes Treatment Notes Treatment Clinical Notes Section Notes 02/28/2025 Hyperkalemia (ICD-10 - E87.5) kidney function is normal. most likely cause is the handling of the blood/f the potassium is high will refer her to renal Plan Of Treatment Treatment Notes Assessment Notes Hyperkalemia kidney function is n ormal. most likely cause is the handling of the blood/f the potassium is high will refer her to renal Referrals Referral Date Details 02/28/2025 02/28/2025, hyperkal Erwin jenkins Next Appt Details Provider Name:Mike Jackson ier, 06/22/2025 02:30:00 PM, [address] [facility], [address], [place], [place], [phone], Progress Notes * Inocente STEINER MDOB:1960 (64 yo F)Acc No.[id number]:02/28/2025 Progress Notes Patient: Inocente ODONNELL Provider: Crescencio Villalta MD :1960 A ge:64 Y S ex:Female Date:02/28/2025 Address:[address] [place] [address] [place], [id number] Subjective: * Chief Complaints: * W /C visit Work Connection Potassium is high * HPI: S ymptom(s): patient is a 64 yo female here to discuss recent lab findings/ here for follow up from the work connection. they said there is no way to see the effects. * ROS: G eneral/Constitutional: Denies C hills. D enies F atigue. D enies F ever. D enies H eadache. E NT: Denies S ore throat. R espiratory: Denies C ough. D enies S hortness of breath at rest. D enies S hortness of breath with exertion. G astrointestinal: Denies D iarrhea. D enies N ausea. * Medical History: * Surgical History: * [...] as needed Orally Three times a day Medication List reviewed and reconciled with the patientNot-Taking/PRN Tylenol 8 Hour 650 MG Tablet Extended Release 2 tablets as needed Orally every 8 hrs Not-Taking/PRN Hyoscyamine Sulfate ER 0.375 MG Tablet Extended Release 1 tablet Orally every day Not-Taking/PRN Ibuprofen 800 MG Tablet 1 tablet with food or milk as needed Orally Three times a day Medication List reviewed and reconciled with the patient * Allergies: N .K.D.A.yes[Allergies Verified] Objective: * Vitals: H t: 59, Wt: 116, BMI:23.43, BP:122/64, Wt-k.62. * Examination: G eneral Examination: GENERAL APPEARANCE: a lert, well hydrated, in no distress, female. SKIN: g ood turgor. HEART: r egular rate and rhythm, no murmurs, rubs, gallops.? LUNGS: n o wheezes, rales, rhonchi, good air movement, clear to auscultation bilaterally. Assessment: * Assessment: 1. H yperkalemia - E87.5 (Primary) Plan: * Treatment: * Procedure Codes: * * Sign off status: Completed true * Provider: Crescencio Villalta MD Date: 0 02/28/2025 Generated for Star fonseca/Logan/Sheridanitting on: 08/15/2024 02:00 PM EST History and Physical Notes * HPI (History of Present Illness) Category Sub-Category Detail Notes Category Not es Symptom(s) patient is a 64 yo female here to discuss recent lab findings/ here for follow up from the work connection. they said there is no way to see the effects. Examination Category Sub-Category Detail Notes Category Not es General Examination GENERAL APPEARANCE: alert, w ell hydrated, in no distress, female HEART: regular rate and rhy thm, no murmurs, rubs, gallops LUNGS: no wheezes, rales, r honchi, good air movement, clear to auscultation bilaterally SKIN: good turgor Consultation Request Notes Referral Date Referring Provider Referred Provider Not es 02/28/2025 Mike Villalta Balaji hyperkal emia
--- OUTSIDE RECORDS SUMMARY | 2025-06-15 02:15 | XMS_ITS ---
Author Organization Mike Villalta MD Address [address] [place], [place] [phone] Care Team Providers Care Concaving Machine Operator Name Role Phone Miek Villalta Primary Care Provider Results Component Value Reference Range Notes Vitamin D 25-OH Total (Not y et reviewed by provider) Interpretation: Performing Lab:[facility], [address] [place] [phone] Notes/Report: Vitamin D 25-OH Total 68.6 >30 ng/mL Health Based Reference Values* < 20 ng/mL Deficient 20-30 ng/mL Insufficient > 30 ng/mL Sufficient *Toby MAGANA. N Engl J Med. 2007;357:266-280 There is no well-established upper level of normal vitamin D levels. Some laboratories use 50 ng/mL as an upper limit of normal. However, toxicity is patient-dependent and may occur at any level. Careful correlation with the patient's presentation is necessary and, if there is concern for vitamin D toxicity, treatment should be considered irrespective of the serum level. Care must be taken in interpreting Vitamin [...] confirmed with another method such as LC-MS/MS. Complete Blood Count Auto Di ff Reviewed date:06/15/2025 12:51:10 PM Interpretation: Performing Lab:[facility], [address] [place] [phone] Notes/Report: White Blood Count 7.3 4.8-10.8 X10*3/uL Red Blood Count 4.69 4.20-5.50 X10*6/uL Hemoglobin 13.0 12.0-16.0 g/dl Hematocrit 41.6 37.0-47.0 % Mean Corpuscular Volume 88.7 80.0-98.0 fL Mean Corpuscular Hemoglobin 27.7 27.0-33.0 pg Mean Corpuscular HGB Conc 31.3 31.0-35.0 g/dl Red Cell Distribution Width 14.1 11.0-16.0 % Platelet Count 377 160-400 X10*3/uL Mean Platelet Volume 9.9 9.4-12.3 fL Neutrophils Percent Auto 58.1 45-73 % Imm Gran Pct Auto 1.0 0.0-0.4 % Lymphocytes Percent Auto 32.1 20-40 % Monocytes Percent Auto 7.4 2-11 % Eosinophils Percent Auto 0.7 0-4 % Basophils Percent Auto 0.7 0-2 % NRBC Pct Auto 0.0 0.0-0.2 /100WBC Neutrophils Absolute Auto 4.3 2.0-8.3 x10*3/u L Imm Gran Abs Auto 0.07 0.00-0.03 X10*3/uL Lymphocytes Absolute Auto 2.4 1.2-4.9 X10*3/u L Monocytes Absolute Auto 0.5 0.1-1.2 X10*3/uL Eosinophils Absolute Auto 0.1 0.0-0.4 X10*3/u L Basophils Absolute Auto 0.1 0.0-0.2 X10*3/uL NRBC Abs Auto 0.000 0.0-0.012 X10*3/uL Lipid Panel Reviewed date:06/15/2025 12:51:21 PM Interpretation: Performing Lab:[facility], [address] [place] [phone] Notes/Report: Triglycerides 88 <150 mg/dL Desirable Triglyceride: less than 150 mg/dL Borderline High Triglyceride 150-199 mg/dL High Triglyceride: 200-499 mg/dL Very High Triglyceride: greater than or equal to 5OO mg/dL Cholesterol 216 <200 mg/dL Desirable Cholesterol: less than 200 mg/dL Borderline High Cholesterol: 200-239 mg/dL High Cholesterol: greater than 239 mg/dL LDL Cholesterol Calculated 150 <100 mg/dL Desirable LDL: less than 100 mg/dL Near Optimal/Above Optimal LDL: 110-129 mg/dL Borderline High LDL: 130-159 mg/dL High LDL: 160-189 mg/dL Very High LDL: greater than or equal to 190 mg/dL HDL Cholesterol 49 >40 mg/dL Desirable HDL: greater than 40 mg/dL Note: This HDL assay may give artificially low results in patients with liver disease. UA ClnCatch+Micro w/rflx Cul t Reviewed date:06/15/2025 12:51:38 PM Interpretation: Performing Lab:[facility], [address] [place] [phone] Notes/Report: Urine, Clean Catch Color Urine Yellow Appearance Urine Clear PH 5.5 5.0-9.0 Glucose Urine UA Negative Negative mg/dL Urine Blood Negative Negative Specific [place] - Urine 1.025 1.005-1.025 Urine Protein Negative Neg-Trace mg/dL Urine Ketones Negative Negative mg/dL Nitrite Urine Negative Negative Leukocyte Esterase Urine Negative Negative RBC Urine 0-2 0-2 /HPF WBC Urine 0-5 0-5 /HPF Squamous Epithelial Cell Urine 0-2 0-2 /HPF Bacteria Urine None Seen None Seen Hyaline Casts Urine 0-2 0-2 /LPF REASON FOR VISIT FASTING LABS Encounters Encounter Location Date Provider Diagnosis Mike Villalta MD [address] [place] [address] Drive [address] [place], [place] [phone] 06/15/2025 Mike Villalta Blood tests for routine general physical examination Z00.00 and Vitamin D deficiency E55.9 Assessments Encounter Date Diagnosis (ICD Code) Assessment Notes Treatment Notes Treatment Clinical Notes Section Notes 06/15/2025 Blood tests for routine general physical examination (ICD-10 - Z00.00) 06/15/2025 Vitamin D deficiency (ICD-10 - E55.9) Plan Of Treatment Pending Test Test Name Order Date Comprehensive [place]. Panel Fast Vitamin D 25-OH Total 06/15/2025 Next Appt Details Provider Name:Mike Jackson ier, 06/22/2025 02:30:00 PM, [address] [facility], [address], [place], [place], [phone], Progress Notes * Inocente STEINER MDOB:1960 (64 yo F)Acc No.[id number]:06/15/2025 Progress Note Patient: Inocente ODONNELL Provider: Crescencio Villalta MD :1960 A ge:64 Y S ex:Female Date:06/15/2025 Address:[address] [place], [place] [id number] Subjective: * Chief Complaints: * 1 . FASTING LABS. * Medical History: Objective: * Vitals: Assessment: * Assessment: 1. B lood tests for routine general physical examination - Z00.00 (Primary) 2 .?Vitamin D deficiency - E55.9 Plan: * Treatment: 2. V itamin D deficiency L AB: Comprehensive [place]. Panel Fast L AB: Vitamin D 25-OH Total (Collection Date & Time - 06/15/2025 07:15 AM) L AB: Complete Blood Count Auto Diff (Collection Date & Time - 06/15/2025 07:15 AM) L AB: Lipid Panel (Collection Date & Time - 06/15/2025 07:15 AM) L AB: UA ClnCatch+Micro w/rflx Cult (Collection Date & Time - 06/15/2025 07:15 AM) * Procedure Codes: 3 6415 VENIPUNCT, ROUTINE* * * The named appointment provid er may or may not be the originator of this progress note, and it is not deemed complete until electronically signed by the appointment provider. Sign off status: Pending * Provider: Crescencio Villalta MD Date: 1 08/15/2024 Generated for Star fonseca/Logan/Tiffanie on: 1 08/15/2024 01:59 PM EST
[2025-06-15 11:18] LABS: MANUAL DIFF FLAG NO
[2025-06-15 11:39] LABS: Hematocrit 41.6 % (37.0-47.0); Hemoglobin 13.0 g/dl (12.0-16.0); Imm Gran Abs Auto 0.07 X10*3/uL (0.00-0.03); Imm Gran Pct Auto 1.0 % (0.0-0.4); Lymphocytes Absolute Auto 2.4 X10*3/uL (1.2-4.9); Mean Corpuscular HGB Conc 31.3 g/dl (31.0-35.0); Mean Corpuscular Hemoglobin 27.7 pg (27.0-33.0); Mean Corpuscular Volume 88.7 fL (80.0-98.0); NRBC Abs Auto 0.000 X10*3/uL (0.0-0.012); NRBC Pct Auto 0.0 /100WBC (0.0-0.2); Platelet Count 377 X10*3/uL (160-400); Red Blood Count 4.69 X10*6/uL (4.20-5.50); White Blood Count 7.3 X10*3/uL (4.8-10.8)
[2025-06-15 11:45] LABS: Appearance Urine Clear; Glucose Urine UA Negative (Negative); PH 5.5 (5.0-9.0); Specific Gravity - Urine 1.025 (1.005-1.025)
[2025-06-15 11:56] LABS: Alanine Aminotransferase 22 U/L (0-31); Albumin Level 4.3 g/dL (3.5-5.0); Alkaline Phosphatase 74 U/L (39-117); Anion Gap 12 (12-20); Aspartate Amino Transferase 27 U/L (5-31); Blood Urea Nitrogen 20 mg/dL (9-16); Calcium 8.9 mg/dL (8.4-10.2); Carbon Dioxide 28 mmol/L (22-29); Chloride 104 mmol/L (96-108); Cholesterol 216 mg/dL (<200); Estimated Glomerular Filt Rate > 60; HDL Cholesterol 49 mg/dL (>40); Potassium 4.0 mmol/L (3.3-5.1); Sodium 140 mmol/L (135-145); Total Protein 6.9 g/dL (6.5-8.0); Triglycerides 88 mg/dL (<150)
--- OUTSIDE RECORDS SUMMARY | 2025-06-15 13:59 | XMS_ITS | Patient Health Record ---
Author Organization Mike Villalta MD Address [address] [place], [place] [id number] Care Team Providers Care Diesel Engine Mechanic Name Role Phone Mike Villalta Primary Care Provider [phone] Allergies No Known Allergies Results Component Value Reference Range Notes Vitamin D 25-OH Total (Not y et reviewed by provider) Interpretation: Performing Lab:[facility], [address] [place] [phone] Notes/Report: Vitamin D 25-OH Total 68.6 >30 [...] ff Reviewed date:06/15/2025 12:51:10 PM Interpretation: Performing Lab:[facility], [address] [place] [phone] Notes/Report: White Blood Count 7.3 4.8-10.8 X10*3/uL [...] Panel Reviewed date:06/15/2025 12:51:21 PM Interpretation: Performing Lab:[facility], [address] [place] [phone] Notes/Report: Triglycerides 88 <150 mg/dL Desirable Triglyceride: [...] t Reviewed date:06/15/2025 12:51:38 PM Interpretation: Performing Lab:[facility], [address] [place] [phone] Notes/Report: Urine, Clean Catch Color Urine Yellow Appearance Urine Clear PH 5.5 5.0-9.0 Glucose Urine UA Negative Negative mg/dL Urine Blood Negative Negative Specific [place] - Urine 1.025 1.005-1.025 Urine Protein Negative Neg-Trace mg/dL Urine Ketones Negative Negative mg/dL Nitrite Urine Negative Negative Leukocyte Esterase Urine Negative Negative RBC Urine 0-2 0-2 /HPF WBC Urine 0-5 0-5 /HPF Squamous Epithelial Cell Urine 0-2 0-2 /HPF Bacteria Urine None Seen None Seen Hyaline Casts Urine 0-2 0-2 /LPF Potassium Reviewed date:02/28/2025 12:31:59 PM Interpretation: Performing Lab:[facility], [address] [place] [phone] Notes/Report: Potassium 4.1 3.3-5.1 mmol/L MAMMOGRAM DIGITAL BILATERAL SCREEN Reviewed date:06/28/2024 12:46:50 PM Interpretation:Negative Performing Lab: Notes/Report: Negative Urinalysis and Microscopic Reviewed date:03/22/2025 02:10:15 PM Interpretation: Performing Lab:[facility], [address] [place] [phone] Notes/Report: Color Urine Yellow Appearance Urine Clear PH 6.5 5.0-9.0 Glucose Urine UA Negative Negative mg/dL Urine Blood Negative Negative Specific [place] - Urine 1.010 1.005-1.025 Urine Protein Negative Neg-Trace mg/dL Urine Ketones Negative Negative mg/dL Nitrite Urine Negative Negative Leukocyte Esterase Urine Trace Negative RBC Urine 0-2 0-2 /HPF WBC Urine 0-5 0-5 /HPF Squamous Epithelial Cell Urine 0-2 0-2 /HPF Bacteria Urine None Seen None Seen Hyaline Casts Urine 0-2 0-2 /LPF Comprehensive Met. Panel Reviewed date:03/23/2025 12:33:36 PM Interpretation: Performing Lab:[facility], [address] [place] [phone] Notes/Report: Sodium 140 135-145 mmol/L Potassium 4.3 [...] Acid Reviewed date:03/23/2025 08:45:53 AM Interpretation: Performing Lab:[facility], [address] [place] [phone] Notes/Report: Uric Acid 2.8 2.4-5.7 mg/dL Creatinine Urine Reviewed date:03/23/2025 08:43:28 AM Interpretation: Performing Lab:[facility], [address] [place] [phone] Notes/Report: Creatinine Urine 20.87 Potassium Urine Random Reviewed date:03/23/2025 08:47:09 AM Interpretation: Performing Lab:[facility], [address] [place] [phone] Notes/Report: Potassium Urine Random 39.7 Comprehensive Met. Panel (No t yet reviewed by provider) Interpretation: Performing Lab:[facility], [address] [place] [phone] Notes/Report: Sodium 140 135-145 mmol/L Potassium 4.0 3.3-5.1 mmol/L Chloride 104 96-108 mmol/L Carbon Dioxide 28 22-29 mmol/L Anion Gap 12 12-20 Blood Urea Nitrogen 20 9-16 mg/dL Creatinine 0.60 0.5-1.4 mg/dL Estimated Glomerular Filt Rate > 60 Chronic Kidney Disease: Estimated GFR < 60 mL/min/1.73m2 Severe Kidney Disease: Estimated GFR < 15 mL/min/1.73m2 Glucose Random 96 60-115 mg/dL Calcium 8.9 8.4-10.2 mg/dL Bilirubin Total 0.3 0.0-1.0 mg/dL Aspartate Amino Transferase 27 5-31 U/L Alanine Aminotransferase 22 0-31 U/L Total Protein 6.9 6.5-8.0 g/dL Albumin Level 4.3 3.5-5.0 g/dL Alkaline Phosphatase 74 39-117 U/L Reason For Referral Reason hyperkalemia Diagnosis 1 [...] Problem Status W/U Status Risk Notes Problem 94983764 Vitamin D deficiency (E55.9) Active confirmed Problem 80801109 Anxiety (F41.9) Active confirmed Problem 6829173 Primary insomnia (F51.01) Active confirmed Problem 09190015 Primary osteoarthritis, right hand (M19.041) Active confirmed Problem 190710369 Lumbago with sciatica, unspecified side (M54.40) Active confirmed Problem 791541296 Lumbar disc disease (M51.9) Active confirmed Problem 994353509 History of breast cancer (Z85.3) Active confirmed Problem 355259991 Tension headache (G44.209) Active confirmed Problem 89117144 Sciatica of right side (M54.31) Active confirmed Problem 363725635 Osteopenia determined by x-ray (M85.80) Active confirmed Vital Signs Blood pressure diastolic 64 mm Hg 02/28/2025 Height 59 in 02/28/2025 Blood pressure systolic 122 mm Hg 02/28/2025 Weight 116 lbs 02/28/2025 BMI 23.43 kg/m2 02/28/2025 Encounters Encounter Location Date Provider Diagnosis Mike Villalta MD [address] [place] [id number] 06/15/2025 Mike Villalta Blood tests for routine general physical examination Z00.00 and Vitamin D deficiency E55.9 Mike Villalta MD [address] [place] [id number] 06/17/2024 Mike Villalta Dermatofibroma D23.9 ; Annual physical exam Z00.00 ; History of breast cancer Z85.3 ; Vitamin D deficiency E55.9 and Depression screening Z13.31 Mike Villalta MD [address] [place] [id number] 02/21/2025 Mike Villalta Lethargy R53.83 Mike Villalta MD [address] [place] [id number] 02/28/2025 Mike Villalta Hyperkalemia E87.5 Mike Villalta MD [address] [place] [id number] 02/21/2025 Mike Villalta MD [address] [place] [id number] 02/16/2025 Mike Villalta Assessments Encounter Date Diagnosis (ICD Code) Assessment Notes Treatment Notes Treatment Clinical Notes Section Notes 06/15/2025 Blood tests for routine general physical examination (ICD-10 - Z00.00) 06/17/2024 Dermatofibroma (ICD-10 - D23.9) referral to [facility]/ PATIENT PREFERS TO GO TO [facility], INFO HAS BEEN GIVEN 06/17/2024 Annual physical exam (ICD-10 - Z00.00) labs reviewed and discussed with patient 02/21/2025 Lethargy (ICD-10 - R53.83) 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 Her employer needs to do this. Called her HR dept they will be handling this. See TE from 02-21-25 for W/C billing info 02/28/2025 Hyperkalemia (ICD-10 - E87.5) kidney function is normal. most likely cause is the handling of the blood/f the potassium is high will refer her to renal 06/15/2025 Vitamin D deficiency (ICD-10 - E55.9) 06/17/2024 History of breast cancer (ICD-10 - Z85.3) is going for mammogram. followed by oncology 06/17/2024 Vitamin D deficiency (ICD-10 - E55.9) stable, will contihue current regiment 06/17/2024 Depression screening (ICD-10 - Z13.31) negative screen Plan Of Treatment Pending Test Test Name Order Date Electrocardiogram (EKG) 03/21/2016 NUC WHOLE BODY SCAN BONE 05/01/2020 Comprehensive Met. Panel 06/15/2025 Comprehensive [place]. Panel Fast Vitamin D 25-OH Total 06/15/2025 Future Test Test Name Order Date BONE DENSITY DEXA 10/29/2020 MAMMOGRAM DIGITAL UNILATERAL LAURA RT 10/09 Next Appt Details Provider Name:Mike [place] ier, 06/22/2025 02:30:00 PM, [address] [place] [address], [address], [place], [place], [id number], Insurance Providers Payer Name Payer Address Payer Phone Subscriber Number Group Number Insured Name Patient Relationship to Insured Coverage Start Date Coverage End Date [employer] [address] [place], [place] [phone] [id number] Inocente Steiner Self - patient is the insured [employer] [address] [address] [place] [id number] Inocente Steiner Self - patient is the insured Medical (General) History Medical History History ICD Code 10/10/2013 Colonoscopy; repeat 10 years; colonoscopy 11/30/[address] Lara (CK biopsy repeat 10 y rs) 01/2015 Bone Density (normal) - repeat 2 years Hx of left mastectomy Surgical History Surgery Date(Month/Year) left mastectomy 2000
--- OUTSIDE RECORDS SUMMARY | 2025-06-15 14:00 | XMS_ITS | Patient Health Record ---
[facility] Address [address] [place] [address] Care Team Providers Care Heading Up Machine Operator Name Role Phone Mike Villalta MD Primary Care Provider Silvino Palma Unavailable [phone] Reason For Referral No Information Medications Medication [...] Insured Coverage Start Date Coverage End Date [facility] [address] [place] [id number] Inocente Steiner Self - patient is the insured Medical (General) History Medical History History ICD Code Anemia Cancer Transfusions Surgical History Surgery Date(Month/Year) cancer surgery-left breast 2001
--- OUTSIDE RECORDS SUMMARY | 2025-06-15 14:00 | XMS_ITS | Patient Health Record ---
Author Organization [facility] Address [address] [place] [id number] Care Team Providers Care Evaluator Name Role Phone Mike Villalta MD Primary [...] at 5:00 p.m. the day before the procedure; Duration: 1 day 11/19/2020 Active Calcium 600 MG [...] Problem Status W/U Status Risk Notes Problem Diarrhea (77669367) Diarrhea, unspecified type (R19.7) Active confirmed Plan Of Treatment Future Test Test Name Order Date COLONOSCOPY 11/19/2020 Insurance Providers Payer Name Payer Address Payer Phone Subscriber Number Group Number Insured Name Patient Relationship to Insured Coverage Start Date Coverage End Date [facility] [address] [place] [address] [phone] [id number] CLEMENCIA MANUEL Self - patient is the insured Medical (General) History Medical History History ICD Code osteopenia breast cancer hx of - left side anxiety lumbar disc disease osteoarthritis Tension Headache diarrhea lumbago with Sciatica Surgical History Surgery Date(Month/Year) left mastectomy Lower Lumbar Ovaries removal
== END 2025-06-15 11:16 | disposition home or self-care (01) ==
LOC: HO.LNP 11:15
PROVIDERS: Visit Provider Internal Medicine
DX: Z00.00 Encounter for general adult medical examination without abnormal findings (principal); Z13.6 Encounter for screening for cardiovascular disorders; E55.9 Vitamin D deficiency, unspecified
CPT/HCPCS: 80053; 80061; 81001; 82306; 85025